=== PATIENT | female | born 1970 | race Caucasian/White ===

== ENCOUNTER 2021-03-19 08:59 | Inpatient (IN) | payer MEDICARE ==
[2021-03-19] VITALS (7 sets, daily range): BP systolic 108–119; BP diastolic 69–81
[~2021-03-19] VITALS: Ht 157.5 cm; Wt 77.1 kg
[2021-03-19] MEDS ORDERED: SODIUM CHLORIDE 0.9% 1000ML 1,000 ML IV STA (09:17)
[2021-03-19] MEDS ORDERED: DIATRIZOATE MEGL/DIATRIZOA SOD 30 ML BTL PO ONE (09:51)
[2021-03-19] MEDS: ONDANSETRON HCL INJ 2MG/ML 2ML 2 MG/ML VIAL IV PRN ×2 (09:51→20:21)
[2021-03-19] MEDS ORDERED: IOPAMIDOL 370 MG/ML 200 ML INFUS..BTL INJ ONE (09:51)
[2021-03-19] MEDS ORDERED: SODIUM CHLORIDE 0.9% 50ML 50 ML ONE (09:51)
[2021-03-19 09:59] LABS: BASOPHILS # (AUTO) 0.1 (0.0-0.1); BASOPHILS % 0.7 % (0.0-1.0); EOSINOPHILS # (AUTO) 0.3 (0.0-0.4); HEMATOCRIT 39.7 % (34.2-44.1); HEMOGLOBIN 13.4 g/dL (12.0-16.0); LYMPHOCYTES # (AUTO) 2.3 (1.0-3.2); LYMPHOCYTES % 22.4 % (18.0-39.1); MEAN CORPUSCULAR HEMOGLOBIN 30.9 pg (28-32); MEAN CORPUSCULAR HGB CONC 33.8 g/dL (31-35); MEAN CORPUSCULAR VOLUME 91.7 fL (81-99); MONOCYTES # (AUTO) 0.4 (0.2-0.8); MONOCYTES % 4.2 % (4.4-11.3); NEUTROPHILS # (AUTO) 7.1 (2.1-6.9); PLATELET COUNT 508 x10e3/uL (140-360); RED BLOOD COUNT 4.33 x10e6/uL (3.6-5.1); RED CELL DISTRIBUTION WIDTH 11.9 % (11.7-14.4)
[2021-03-19 10:12] LABS: BACTERIA,URINE FEW /HPF; CLARITY,URINE CLEAR (CLEAR); COLOR,URINE YELLOW (YELLOW); EPITHELIAL CELLS,URINE FEW /LPF; KETONES,URINE NEGATIVE (NEGATIVE); LEUKOCYTE ESTERASE ,URINE NEGATIVE (NEGATIVE); NITRITE,URINE NEGATIVE (NEGATIVE); PROTEIN,URINE DIPSTICK NEGATIVE (NEGATIVE); RBC,URINE 0-5 /HPF (0-5); URINE UROBILINOGEN 0.2 mg/dL (0.2 - 1)
[2021-03-19 10:29] LABS: ALBUMIN 3.6 g/dL (3.5-5.0); ALBUMIN/GLOBULIN RATIO 0.9 (0.8-2.0); ANION GAP 17.8 mmol/L (8-16); CALCIUM 9.2 mg/dL (8.4-10.2); CREATININE, SERUM 1.36 mg/dL (0.57-1.11); POTASSIUM 4.8 mmol/L (3.5-5.1)
[2021-03-19] MEDS ORDERED: INSULIN REGULAR, HUMAN 100 UNIT/1 ML 3ML VIAL IV ONE (10:45)
[2021-03-19] MEDS ORDERED: LACTATED RINGER'S 1,000 ML INJ ONE (10:45)
[2021-03-19] MEDS ORDERED: SODIUM CHLORIDE 0.9% 1000ML 1,000 ML ONE (10:52)
[2021-03-19] MEDS ORDERED: SODIUM CHLORIDE 0.9% 1000ML 1,000 ML IV ONE (11:00)
[2021-03-19] MEDS ORDERED: ONDANSETRON HCL INJ 2MG/ML 2ML 2 MG/ML VIAL IV PRN (11:30)
[2021-03-19] MEDS ORDERED: MORPHINE SULFATE INJ 2 MG/ML SYR IV PRN (11:30)
[2021-03-19] MEDS: SODIUM CHLORIDE 0.9% 1000ML 1,000 ML IV SCH ×3 (11:48→20:02)
[2021-03-19] MEDS ORDERED: DEXTROSE 50% SYRINGE 50 ML IV PRN (12:45)
[2021-03-19] MEDS: INSULIN REGULAR, HUMAN 100 UNIT/1 ML 3ML VIAL SQ SCH ×2 (18:19→21:48)
[2021-03-19 18:26] LABS: CHOL/HDL RATIO 8.9 (3.0-3.6); CHOLESTEROL 286 MD/DL (0-199); HDL CHOLESTEROL 32 MG/DL (40-60); TRIGLYCERIDES 727 MG/DL (0-149)
[2021-03-19 18:49] LABS: FREE THYROXINE INDEX 2.2983 (1.4-3.8); THYROID STIMULATING HORMONE 1.409 uIU/mL (0.350-4.940)
[2021-03-19] MEDS: MORPHINE SULFATE INJ 4 MG/ML INJ 1ML IV PRN (20:22)
[2021-03-20] VITALS (9 sets, daily range): BP systolic 94–118; BP diastolic 64–74
[2021-03-20] MEDS: SODIUM CHLORIDE 0.9% 1000ML 1,000 ML IV SCH ×7 (00:34→22:33)
[2021-03-20] MEDS: ONDANSETRON HCL INJ 2MG/ML 2ML 2 MG/ML VIAL IV PRN ×2 (00:50→20:30)
[2021-03-20] MEDS: MORPHINE SULFATE INJ 4 MG/ML INJ 1ML IV PRN ×5 (00:51→20:30)
[2021-03-20] MEDS ORDERED: FENOFIBRATE 145 MG TAB PO STA (01:17)
[2021-03-20 05:01] LABS: BASOPHILS # (AUTO) 0.1 (0.0-0.1); BASOPHILS % 0.6 % (0.0-1.0); EOSINOPHILS # (AUTO) 0.2 (0.0-0.4); EOSINOPHILS % 2.3 % (0.0-6.0); HEMATOCRIT 31.1 % (34.2-44.1); HEMOGLOBIN 10.2 g/dL (12.0-16.0); LYMPHOCYTES # (AUTO) 2.3 (1.0-3.2); LYMPHOCYTES % 28.9 % (18.0-39.1); MEAN CORPUSCULAR HEMOGLOBIN 30.5 pg (28-32); MEAN CORPUSCULAR HGB CONC 32.8 g/dL (31-35); MEAN CORPUSCULAR VOLUME 93.1 fL (81-99); MONOCYTES # (AUTO) 0.4 (0.2-0.8); MONOCYTES % 4.4 % (4.4-11.3); NEUTROPHILS % 63.2 % (38.7-80.0); PLATELET COUNT 382 x10e3/uL (140-360); RED BLOOD COUNT 3.34 x10e6/uL (3.6-5.1)
[2021-03-20] MEDS: METOCLOPRAMIDE HCL 10 MG/2ML VIAL IV SCH ×3 (05:12→18:19)
[2021-03-20 05:36] LABS: ALANINE AMINOTRANSFERASE 13 IU/L (0-55); ALBUMIN 2.8 g/dL (3.5-5.0); ALKALINE PHOSPHATASE 131 IU/L (40-150); ANION GAP 9.9 mmol/L (8-16); BLOOD UREA NITROGEN 21 mg/dL (7-26); BUN/CREATININE RATIO 32 (6-25); CALCIUM 7.9 mg/dL (8.4-10.2); CARBON DIOXIDE 22 mmol/L (22-29); CHLORIDE 108 mmol/L (98-107); CREATININE, SERUM 0.65 mg/dL (0.57-1.11); EST GLOMERULAR FILTRATION RATE > 60 ML/MIN (60-); GLUCOSE 161 mg/dL (74-118); LIPASE 192 U/L (8-78); MAGNESIUM 1.9 MG/DL (1.3-2.1); POTASSIUM 3.9 mmol/L (3.5-5.1); SODIUM 136 mmol/L (136-145)
[2021-03-20] MEDS: FENOFIBRATE 145 MG TAB PO SCH (08:54)
[2021-03-20] MEDS: INSULIN REGULAR, HUMAN 100 UNIT/1 ML 3ML VIAL SQ SCH ×2 (09:00→12:30)
[2021-03-20] MEDS: INSULIN LISPRO 100 UNIT/1 ML 3ML VIAL SQ SCH ×2 (16:32→21:30)
[2021-03-20] MEDS ORDERED: INSULIN GLARGINE 100 UNITS/ML VIAL SQ SCH (21:00)
[2021-03-21] VITALS (8 sets, daily range): BP systolic 98–137; BP diastolic 69–97
[2021-03-21] MEDS: SODIUM CHLORIDE 0.9% 1000ML 1,000 ML IV SCH ×4 (00:30→18:23)
[2021-03-21] MEDS: METOCLOPRAMIDE HCL 10 MG/2ML VIAL IV SCH ×4 (00:44→17:16)
[2021-03-21] MEDS: MORPHINE SULFATE INJ 4 MG/ML INJ 1ML IV PRN ×3 (01:30→18:18)
[2021-03-21 05:29] LABS: BASOPHILS # (AUTO) 0.1 (0.0-0.1); BASOPHILS % 0.7 % (0.0-1.0); EOSINOPHILS # (AUTO) 0.2 (0.0-0.4); EOSINOPHILS % 2.6 % (0.0-6.0); HEMATOCRIT 33.9 % (34.2-44.1); HEMOGLOBIN 11.1 g/dL (12.0-16.0); LYMPHOCYTES # (AUTO) 2.1 (1.0-3.2); LYMPHOCYTES % 25.6 % (18.0-39.1); MEAN CORPUSCULAR HEMOGLOBIN 30.9 pg (28-32); MEAN CORPUSCULAR HGB CONC 32.7 g/dL (31-35); MEAN CORPUSCULAR VOLUME 94.4 fL (81-99); MONOCYTES # (AUTO) 0.3 (0.2-0.8); MONOCYTES % 4.2 % (4.4-11.3); NEUTROPHILS # (AUTO) 5.3 (2.1-6.9); NEUTROPHILS % 66.3 % (38.7-80.0); PLATELET COUNT 415 x10e3/uL (140-360); RED BLOOD COUNT 3.59 x10e6/uL (3.6-5.1)
[2021-03-21 05:59] LABS: ALANINE AMINOTRANSFERASE 34 IU/L (0-55); ALBUMIN/GLOBULIN RATIO 0.9 (0.8-2.0); ALKALINE PHOSPHATASE 180 IU/L (40-150); ANION GAP 8.7 mmol/L (8-16); BLOOD UREA NITROGEN 9 mg/dL (7-26); BUN/CREATININE RATIO 13 (6-25); CALCIUM 8.2 mg/dL (8.4-10.2); CARBON DIOXIDE 24 mmol/L (22-29); CHLORIDE 107 mmol/L (98-107); CREATININE, SERUM 0.72 mg/dL (0.57-1.11); EST GLOMERULAR FILTRATION RATE > 60 ML/MIN (60-); GLUCOSE 197 mg/dL (74-118); LIPASE 71 U/L (8-78); POTASSIUM 3.7 mmol/L (3.5-5.1); SODIUM 136 mmol/L (136-145)
[2021-03-21 06:20] LABS: FERRITIN 137.04 ng/mL (4.63-204.00)
[2021-03-21] MEDS: INSULIN LISPRO 100 UNIT/1 ML 3ML VIAL SQ SCH ×4 (07:30→21:15)
[2021-03-21] MEDS: FENOFIBRATE 145 MG TAB PO SCH (08:07)
[2021-03-21] MEDS ORDERED: SODIUM CHLORIDE 0.9% 1000ML 1,000 ML IV SCH (13:00)
[2021-03-21] MEDS: ACETAMINOPHEN 325 MG TAB PO PRN (19:33)
[2021-03-21] MEDS: INSULIN GLARGINE 100 UNITS/ML VIAL SQ SCH (21:15)
[2021-03-22] VITALS (8 sets, daily range): BP systolic 118–146; BP diastolic 75–96
[2021-03-22] MEDS: METOCLOPRAMIDE HCL 10 MG/2ML VIAL IV SCH ×5 (00:41→23:11)
[2021-03-22] MEDS: SODIUM CHLORIDE 0.9% 1000ML 1,000 ML IV SCH ×6 (02:45→22:34)
[2021-03-22] MEDS: MORPHINE SULFATE INJ 4 MG/ML INJ 1ML IV PRN ×5 (04:46→23:11)
[2021-03-22 06:35] LABS: MAGNESIUM 1.8 MG/DL (1.3-2.1)
[2021-03-22] MEDS: ACETAMINOPHEN 325 MG TAB PO PRN ×2 (07:29→20:50)
[2021-03-22] MEDS: INSULIN LISPRO 100 UNIT/1 ML 3ML VIAL SQ SCH ×4 (07:30→21:00)
[2021-03-22] MEDS: FENOFIBRATE 145 MG TAB PO SCH (08:47)
[2021-03-22] MEDS: LORAZEPAM 1 MG TAB PO PRN ×2 (15:04→21:57)
[2021-03-22] MEDS: INSULIN GLARGINE 100 UNITS/ML VIAL SQ SCH (21:00)
[2021-03-23] VITALS: BP_SYST 140; BP_SYST 146; BP_DIAS 83; BP_DIAS 90
[2021-03-23 04:00] VITALS: BP 126/88
[2021-03-23] MEDS: METOCLOPRAMIDE HCL 10 MG/2ML VIAL IV SCH (06:26)
[2021-03-23] MEDS: MORPHINE SULFATE INJ 4 MG/ML INJ 1ML IV PRN (06:40)
[2021-03-23] MEDS: ACETAMINOPHEN 325 MG TAB PO PRN (06:40)
[2021-03-23] MEDS: INSULIN LISPRO 100 UNIT/1 ML 3ML VIAL SQ SCH (07:30)
[2021-03-23] MEDS: FENOFIBRATE 145 MG TAB PO SCH (07:59)
[2021-03-23] MEDS ORDERED: PANTOPRAZOLE SO40 MG PO (08:09)
[2021-03-23 08:14] VITALS: BP 126/88
== END 2021-03-23 09:30 | disposition home or self-care (01) | DRG 439 ==
LOC: ER 09:24 → ERHOLD 11:33 → MED/SURG 12:58
PROVIDERS: ADMIT Family Medicine; ATTEND Family Medicine
DX: K85.90 Acute pancreatitis without necrosis or infection, unspecified (principal); E87.1 Hypo-osmolality and hyponatremia; E11.649 Type 2 diabetes mellitus with hypoglycemia without coma; E11.40 Type 2 diabetes mellitus with diabetic neuropathy, unspecified; F31.9 Bipolar disorder, unspecified; Z87.891 Personal history of nicotine dependence; Z20.822 Contact with and (suspected) exposure to COVID-19; I10 Essential (primary) hypertension; E78.5 Hyperlipidemia, unspecified; D64.9 Anemia, unspecified; J44.9 Chronic obstructive pulmonary disease, unspecified; M19.90 Unspecified osteoarthritis, unspecified site; M79.7 Fibromyalgia; E86.1 Hypovolemia
CPT/HCPCS: 36415; 74177; 80053; 80061; 81001; 82150; 82607; 82728; 82746; 82948; 83036; 83540; 83690; 83735; 84436; 84443; 84466; 84478; 84479; 85025; 85045; 93005; 93971; 96372; 99284; J1815; J1817; J2270; J2405; J2765; J7030; Q9967; U0002

== ENCOUNTER 2021-07-19 17:14 | Inpatient (IN) | payer MEDICARE, OTHER ==
[~2021-07-19] VITALS: Ht 157.5 cm; Wt 78.0 kg
[~2021-07-19 17:14] MED LIST: PANTOPRAZOLE SO40 MG PO
[2021-07-19 18:00] LABS: BASOPHILS % 0.5 % (0.0-1.0); EOSINOPHILS # (AUTO) 0.1 (0.0-0.4); EOSINOPHILS % 1.7 % (0.0-6.0); HEMATOCRIT 37.7 % (34.2-44.1); HEMOGLOBIN 12.1 g/dL (12.0-16.0); LYMPHOCYTES # (AUTO) 0.5 (1.0-3.2); LYMPHOCYTES % 7.8 % (18.0-39.1); MEAN CORPUSCULAR HEMOGLOBIN 31.1 pg (28-32); MEAN CORPUSCULAR HGB CONC 32.1 g/dL (31-35); MEAN CORPUSCULAR VOLUME 96.9 fL (81-99); MONOCYTES # (AUTO) 0.1 (0.2-0.8); MONOCYTES % 1.4 % (4.4-11.3); NEUTROPHILS # (AUTO) 5.1 (2.1-6.9); NEUTROPHILS % 88.1 % (38.7-80.0); PLATELET COUNT 343 x10e3/uL (140-360); RED BLOOD COUNT 3.89 x10e6/uL (3.6-5.1); RED CELL DISTRIBUTION WIDTH 13.4 % (11.7-14.4)
[2021-07-19] MEDS ORDERED: PIPERACILLIN/TAZOBACTAM 3.375 GM in SODIUM CHLORIDE 0.9% 50ML 50 ML IV ONE (18:15)
[2021-07-19] MEDS ORDERED: SODIUM CHLORIDE 0.9% 1000ML 1,000 ML IV SCH (18:15)
[2021-07-19 18:33] LABS: ALBUMIN 3.1 g/dL (3.5-5.0); ALBUMIN/GLOBULIN RATIO 0.8 (0.8-2.0); ANION GAP 14.8 mmol/L (8-16); CALCIUM 9.3 mg/dL (8.4-10.2); CREATININE, SERUM 1.03 mg/dL (0.57-1.11); POTASSIUM 3.8 mmol/L (3.5-5.1)
[2021-07-19] MEDS ORDERED: KETOROLAC TROMETHAMINE 30 MG/ML VIAL IV STA (18:37)
[2021-07-19] MEDS ORDERED: ONDANSETRON HCL INJ 2MG/ML 2ML 2 MG/ML VIAL IV STA (18:37)
[2021-07-19 18:45] LABS: AMYLASE 41 U/L (25-125); LIPASE 53 U/L (8-78)
[2021-07-19 18:54] LABS: AMPHETAMINES SCREEN,URINE NEGATIVE (NEGATIVE); PHENCYCLIDINE SCREEN,URINE NEGATIVE (NEGATIVE)
[2021-07-19 18:55] LABS: BENZODIAZEPINES SCREEN,URINE NEGATIVE (NEGATIVE)
[2021-07-19 18:56] LABS: CLARITY,URINE CLEAR (CLEAR); COLOR,URINE YELLOW (YELLOW); KETONES,URINE NEGATIVE (NEGATIVE); LEUKOCYTE ESTERASE ,URINE NEGATIVE (NEGATIVE); NITRITE,URINE NEGATIVE (NEGATIVE); PROTEIN,URINE DIPSTICK NEGATIVE (NEGATIVE); URINE UROBILINOGEN 0.2 mg/dL (0.2 - 1)
[2021-07-19] MEDS ORDERED: SODIUM CHLORIDE 0.9% 1000ML 1,000 ML IV ONE ×3 (19:00→21:15)
[2021-07-19 19:04] LABS: WBC,URINE (MAN) 21-50 /HPF (0-5)
[2021-07-19 19:05] LABS: BACTERIA,URINE FEW /HPF; EPITHELIAL CELLS,URINE FEW /LPF
[2021-07-19 19:10] LABS: SALICYLATE < 5.0 mg/dL (0-30)
[2021-07-19 19:25] LABS: BAND NEUTROPHILS % (MANUAL) 10 %; EOSINOPHILS % (MANUAL) 3 % (0-7); LYMPHOCYTES % (MANUAL) 13 % (19-48); MYELOCYTES % (MANUAL) 1 % (0-0); NEUTROPHILS % (MANUAL) 73 % (40-74)
[2021-07-19 19:26] LABS: PLATELET ESTIMATE ADEQUATE; PLATELET MORPHOLOGY COMMENT NORMAL; RBC MORPHOLOGY COMMENT NORMAL
[2021-07-19] MEDS ORDERED: DEXTROSE 50% SYRINGE 50 ML IV PRN (21:30)
[2021-07-19] MEDS ORDERED: Morphine 2mg Syringe 2 MG/ML SYR ONE (23:25)
[2021-07-19] MEDS ORDERED: ONDANSETRON HCL INJ 2MG/ML 2ML 2 MG/ML VIAL ONE (23:25)
[2021-07-19] MEDS: PIPERACILLIN/TAZOBACTAM 3.375 GM in SODIUM CHLORIDE 0.9% 50ML 50 ML IV SCH (23:35)
[2021-07-19] MEDS: SODIUM CHLORIDE 0.9% 1000ML 1,000 ML IV SCH (23:36)
[2021-07-20] VITALS (7 sets, daily range): BP systolic 90–104; BP diastolic 60–73
[2021-07-20] MEDS ORDERED: Morphine 2mg Syringe 2 MG/ML SYR IV STA
[2021-07-20] MEDS ORDERED: BUPIVACAINE HCL 0.5% INJ 30 ML VIAL INJ ONE (00:13)
[2021-07-20] MEDS ORDERED: Morphine 4mg Syringe 4 MG/ML INJ IV PRN (03:00)
[2021-07-20] MEDS: ONDANSETRON HCL INJ 2MG/ML 2ML 2 MG/ML VIAL IV PRN ×2 (03:53→18:06)
[2021-07-20] MEDS ORDERED: LAMICTAL5 MG PO (04:55)
[2021-07-20] MEDS ORDERED: CYMBALTA30 MG (05:02)
[2021-07-20] MEDS ORDERED: ATORVASTATIN CA10 MG PO (05:02)
[2021-07-20] MEDS ORDERED: LISINOPRIL10 MG PO (05:02)
[2021-07-20] MEDS ORDERED: DIPHENHYDRAMINE25 M1 PO (05:02)
[2021-07-20] MEDS ORDERED: BUSPIRONE HCL15 MG PO (05:02)
[2021-07-20] MEDS: SODIUM CHLORIDE 0.9% 1000ML 1,000 ML IV SCH ×2 (05:46→20:01)
[2021-07-20] MEDS: KETOROLAC TROMETHAMINE 30 MG/ML VIAL IV PRN ×3 (05:47→18:06)
[2021-07-20] MEDS: PIPERACILLIN/TAZOBACTAM 3.375 GM in SODIUM CHLORIDE 0.9% 50ML 50 ML IV SCH ×4 (05:47→23:37)
[2021-07-20 06:37] LABS: BASOPHILS # (AUTO) 0.1 (0.0-0.1); BASOPHILS % 0.8 % (0.0-1.0); EOSINOPHILS % 0.1 % (0.0-6.0); HEMATOCRIT 33.1 % (34.2-44.1); HEMOGLOBIN 10.8 g/dL (12.0-16.0); LYMPHOCYTES # (AUTO) 0.4 (1.0-3.2); LYMPHOCYTES % 3.4 % (18.0-39.1); MEAN CORPUSCULAR HGB CONC 32.6 g/dL (31-35); MEAN CORPUSCULAR VOLUME 95.1 fL (81-99); MONOCYTES # (AUTO) 0.3 (0.2-0.8); MONOCYTES % 3.3 % (4.4-11.3); NEUTROPHILS # (AUTO) 9.5 (2.1-6.9); NEUTROPHILS % 91.2 % (38.7-80.0); PLATELET COUNT 339 x10e3/uL (140-360); RED BLOOD COUNT 3.48 x10e6/uL (3.6-5.1); RED CELL DISTRIBUTION WIDTH 13.4 % (11.7-14.4)
[2021-07-20 07:14] LABS: ALBUMIN 2.5 g/dL (3.5-5.0); ALBUMIN/GLOBULIN RATIO 0.8 (0.8-2.0); ANION GAP 15.6 mmol/L (8-16); CALCIUM 8.1 mg/dL (8.4-10.2); CREATININE, SERUM 1.08 mg/dL (0.57-1.11); POTASSIUM 4.6 mmol/L (3.5-5.1)
[2021-07-20] MEDS ORDERED: Morphine 2mg Syringe 2 MG/ML SYR IV PRN (07:30)
[2021-07-20] MEDS ORDERED: HYDRALAZINE HCL 20 MG/ML VIAL IV PRN (07:30)
[2021-07-20] MEDS ORDERED: SODIUM CHLORIDE 0.9% 50ML 50 ML ONE (07:53)
[2021-07-20] MEDS ORDERED: IOPAMIDOL 370 MG/ML 200 ML INFUS..BTL INJ ONE (07:53)
[2021-07-20] MEDS: PANTOPRAZOLE SOD 40 MG TABEC PO SCH ×2 (08:30→16:45)
[2021-07-20] MEDS: LAMOTRIGINE 100 MG TAB PO SCH ×2 (08:30→16:45)
[2021-07-20] MEDS: DULOXETINE HCL 30 MG DELAYED RELEASE PO SCH ×2 (08:30→16:45)
[2021-07-20] MEDS: INSULIN REGULAR, HUMAN 100 UNIT/1 ML SQ SCH ×4 (08:30→21:18)
[2021-07-20] MEDS: BUSPIRONE HCL 5 MG TAB PO SCH ×3 (08:30→20:22)
[2021-07-20 11:49] LABS: BAND NEUTROPHILS % (MANUAL) 16 %; LYMPHOCYTES % (MANUAL) 6 % (19-48); MONOCYTES % (MANUAL) 4 % (3.4-9.0); MYELOCYTES % (MANUAL) 2 % (0-0); NEUTROPHILS % (MANUAL) 69 % (40-74); PLATELET ESTIMATE ADEQUATE; PLATELET MORPHOLOGY COMMENT NORMAL; RBC MORPHOLOGY COMMENT NORMAL
[2021-07-20] MEDS ORDERED: NEOSTIGMINE 1 MG/ML 10ML VIAL ONE (12:47)
[2021-07-20] MEDS ORDERED: ATROPINE SULFATE 1 MG/ML VIAL ONE (12:47)
[2021-07-20] MEDS ORDERED: POVIDONE IODINE 0.05% 0.05 % ML PO ONE (12:47)
[2021-07-20] MEDS ORDERED: ONDANSETRON HCL INJ 2MG/ML 2ML 2 MG/ML VIAL ONE (12:47)
[2021-07-20] MEDS ORDERED: LIDOCAINE HCL 2% LOCAL INJ 5 ML SDV VIAL INJ ONE (12:47)
[2021-07-20] MEDS ORDERED: SEVOFLURANE INHAL SOLN 250 ML PEN BTL ONE (12:47)
[2021-07-20] MEDS ORDERED: ROCURONIUM BROMIDE 10 MG/ML 5ML VIAL IV ONE (12:47)
[2021-07-20] MEDS ORDERED: DEXAMETHASONE SOD PHOS INJ 4 MG/ML SDV ONE (12:47)
[2021-07-20] MEDS ORDERED: KETOROLAC TROMETHAMINE 30 MG/ML VIAL ONE (12:47)
[2021-07-20] MEDS ORDERED: SUCCINYLCHOLINE CHLORIDE 20 MG/ML 10ML VIAL ONE (12:47)
[2021-07-20] MEDS ORDERED: PROPOFOL IV EMULSION 10 MG/ML 20 ML VIAL ONE (12:47)
[2021-07-20] MEDS: HYDROMORPHONE 1MG/1ML INJ IV PRN ×3 (14:15→22:45)
[2021-07-20] MEDS ORDERED: FENTANYL CITRATE/PF 100MCG/2 ML INJ ONE (16:10)
[2021-07-20] MEDS ORDERED: MIDAZOLAM HCL 2 MG/2 ML VIAL ONE (16:10)
[2021-07-20] MEDS: TEMAZEPAM 7.5 MG CAP PO PRN (20:22)
[2021-07-20] MEDS: ATORVASTATIN 10 MG TAB PO SCH (20:22)
[2021-07-21] VITALS (8 sets, daily range): BP systolic 101–126; BP diastolic 75–82
[2021-07-21] MEDS: KETOROLAC TROMETHAMINE 30 MG/ML VIAL IV PRN ×3 (00:40→20:29)
[2021-07-21] MEDS: HYDROMORPHONE 1MG/1ML INJ IV PRN ×2 (05:11→17:14)
[2021-07-21] MEDS: PIPERACILLIN/TAZOBACTAM 3.375 GM in SODIUM CHLORIDE 0.9% 50ML 50 ML IV SCH ×3 (06:02→16:15)
[2021-07-21 06:11] LABS: BASOPHILS % 0.3 % (0.0-1.0); EOSINOPHILS # (AUTO) 0.2 (0.0-0.4); EOSINOPHILS % 1.3 % (0.0-6.0); HEMATOCRIT 33.3 % (34.2-44.1); HEMOGLOBIN 10.6 g/dL (12.0-16.0); LYMPHOCYTES # (AUTO) 0.6 (1.0-3.2); LYMPHOCYTES % 4.8 % (18.0-39.1); MEAN CORPUSCULAR HEMOGLOBIN 31.1 pg (28-32); MEAN CORPUSCULAR HGB CONC 31.8 g/dL (31-35); MEAN CORPUSCULAR VOLUME 97.7 fL (81-99); MONOCYTES # (AUTO) 0.4 (0.2-0.8); MONOCYTES % 2.9 % (4.4-11.3); NEUTROPHILS # (AUTO) 11.5 (2.1-6.9); NEUTROPHILS % 89.3 % (38.7-80.0); PLATELET COUNT 395 x10e3/uL (140-360); RED BLOOD COUNT 3.41 x10e6/uL (3.6-5.1); RED CELL DISTRIBUTION WIDTH 13.7 % (11.7-14.4)
[2021-07-21 06:34] LABS: ANION GAP 15.3 mmol/L (8-16); CALCIUM 8.7 mg/dL (8.4-10.2); CREATININE, SERUM 0.96 mg/dL (0.57-1.11); POTASSIUM 3.3 mmol/L (3.5-5.1)
[2021-07-21] MEDS: INSULIN REGULAR, HUMAN 100 UNIT/1 ML SQ SCH ×4 (07:30→20:26)
[2021-07-21] MEDS: PANTOPRAZOLE SOD 40 MG TABEC PO SCH ×2 (08:49→16:14)
[2021-07-21] MEDS: DULOXETINE HCL 30 MG DELAYED RELEASE PO SCH ×2 (08:49→16:14)
[2021-07-21] MEDS: BUSPIRONE HCL 5 MG TAB PO SCH ×3 (08:49→20:30)
[2021-07-21] MEDS: LAMOTRIGINE 100 MG TAB PO SCH ×2 (08:50→16:15)
[2021-07-21] MEDS ORDERED: POTASSIUM CHLORIDE 10MEQ/100ML 100 ML IV ONE ×2 (13:00→16:15)
[2021-07-21] MEDS ORDERED: MIDAZOLAM HCL 2 MG/2 ML VIAL ONE (15:03)
[2021-07-21] MEDS ORDERED: FENTANYL CITRATE/PF 100MCG/2 ML INJ ONE (15:03)
[2021-07-21] MEDS: SODIUM CHLORIDE 0.9% 1000ML 1,000 ML IV SCH (16:07)
[2021-07-21] MEDS: ATORVASTATIN 10 MG TAB PO SCH (20:30)
[2021-07-22] VITALS (9 sets, daily range): BP systolic 94–134; BP diastolic 73–87
[2021-07-22] MEDS: PIPERACILLIN/TAZOBACTAM 3.375 GM in SODIUM CHLORIDE 0.9% 50ML 50 ML IV SCH ×3 (00:20→12:00)
[2021-07-22] MEDS: HYDROMORPHONE 1MG/1ML INJ IV PRN ×2 (00:22→08:20)
[2021-07-22] MEDS: PANTOPRAZOLE SOD 40 MG TABEC PO SCH ×2 (05:22→08:21)
[2021-07-22] MEDS: KETOROLAC TROMETHAMINE 30 MG/ML VIAL IV PRN (05:23)
[2021-07-22 05:45] LABS: BASOPHILS # (AUTO) 0.1 (0.0-0.1); BASOPHILS % 0.5 % (0.0-1.0); EOSINOPHILS # (AUTO) 0.4 (0.0-0.4); EOSINOPHILS % 2.9 % (0.0-6.0); HEMATOCRIT 30.4 % (34.2-44.1); HEMOGLOBIN 9.7 g/dL (12.0-16.0); LYMPHOCYTES # (AUTO) 0.6 (1.0-3.2); LYMPHOCYTES % 4.1 % (18.0-39.1); MEAN CORPUSCULAR HEMOGLOBIN 30.9 pg (28-32); MEAN CORPUSCULAR HGB CONC 31.9 g/dL (31-35); MEAN CORPUSCULAR VOLUME 96.8 fL (81-99); MONOCYTES # (AUTO) 0.5 (0.2-0.8); MONOCYTES % 3.6 % (4.4-11.3); NEUTROPHILS # (AUTO) 11.7 (2.1-6.9); PLATELET COUNT 368 x10e3/uL (140-360); RED BLOOD COUNT 3.14 x10e6/uL (3.6-5.1); RED CELL DISTRIBUTION WIDTH 13.9 % (11.7-14.4)
[2021-07-22 06:20] LABS: ANION GAP 15.4 mmol/L (8-16); CALCIUM 8.6 mg/dL (8.4-10.2); CREATININE, SERUM 0.77 mg/dL (0.57-1.11); POTASSIUM 3.4 mmol/L (3.5-5.1)
[2021-07-22] MEDS: BUSPIRONE HCL 5 MG TAB PO SCH ×3 (08:21→16:52)
[2021-07-22] MEDS: DULOXETINE HCL 30 MG DELAYED RELEASE PO SCH ×2 (08:21→16:52)
[2021-07-22] MEDS: LAMOTRIGINE 100 MG TAB PO SCH ×2 (08:21→16:52)
[2021-07-22] MEDS: INSULIN REGULAR, HUMAN 100 UNIT/1 ML SQ SCH ×4 (08:32→21:24)
[2021-07-22] MEDS: POTASSIUM CHLORIDE 20MEQ/100ML 100 ML IV ONE ×2 (10:01→11:57)
[2021-07-22] MEDS: SODIUM CHLORIDE 0.9% 1000ML 1,000 ML IV SCH (12:04)
[2021-07-22] MEDS ORDERED: POTASSIUM CHLORIDE 20 MEQ TAB CR PO ONE (12:30)
[2021-07-22] MEDS: CEFUROXIME AXETIL 250 MG TAB PO SCH (16:53)
[2021-07-22] MEDS: ATORVASTATIN 10 MG TAB PO SCH (21:24)
[2021-07-22] MEDS: HYDROCODONE/APAP 5MG-325MG TAB PO PRN (21:55)
[2021-07-23] VITALS (8 sets, daily range): BP systolic 127–145; BP diastolic 75–93
[2021-07-23] MEDS: HYDROCODONE/APAP 5MG-325MG TAB PO PRN ×5 (04:05→21:25)
[2021-07-23 04:59] LABS: BASOPHILS # (AUTO) 0.1 (0.0-0.1); BASOPHILS % 0.5 % (0.0-1.0); EOSINOPHILS # (AUTO) 0.5 (0.0-0.4); EOSINOPHILS % 3.4 % (0.0-6.0); HEMATOCRIT 29.7 % (34.2-44.1); HEMOGLOBIN 9.7 g/dL (12.0-16.0); LYMPHOCYTES # (AUTO) 0.9 (1.0-3.2); LYMPHOCYTES % 6.3 % (18.0-39.1); MEAN CORPUSCULAR HEMOGLOBIN 30.4 pg (28-32); MEAN CORPUSCULAR HGB CONC 32.7 g/dL (31-35); MEAN CORPUSCULAR VOLUME 93.1 fL (81-99); MONOCYTES # (AUTO) 0.7 (0.2-0.8); MONOCYTES % 4.4 % (4.4-11.3); NEUTROPHILS # (AUTO) 12.1 (2.1-6.9); NEUTROPHILS % 82.3 % (38.7-80.0); PLATELET COUNT 347 x10e3/uL (140-360); RED BLOOD COUNT 3.19 x10e6/uL (3.6-5.1); RED CELL DISTRIBUTION WIDTH 13.8 % (11.7-14.4)
[2021-07-23 05:26] LABS: ALBUMIN 2.2 g/dL (3.5-5.0); ALBUMIN/GLOBULIN RATIO 0.5 (0.8-2.0); ANION GAP 12.3 mmol/L (8-16); CALCIUM 8.9 mg/dL (8.4-10.2); CREATININE, SERUM 0.71 mg/dL (0.57-1.11); POTASSIUM 3.3 mmol/L (3.5-5.1)
[2021-07-23] MEDS: PANTOPRAZOLE SOD 40 MG TABEC PO SCH ×2 (05:32→16:30)
[2021-07-23] MEDS: INSULIN REGULAR, HUMAN 100 UNIT/1 ML SQ SCH ×4 (08:00→21:00)
[2021-07-23] MEDS: SODIUM CHLORIDE 0.9% 1000ML 1,000 ML IV SCH (08:04)
[2021-07-23] MEDS: DULOXETINE HCL 30 MG DELAYED RELEASE PO SCH ×2 (08:09→16:30)
[2021-07-23] MEDS: LAMOTRIGINE 100 MG TAB PO SCH ×2 (08:09→16:32)
[2021-07-23] MEDS: BUSPIRONE HCL 5 MG TAB PO SCH ×3 (08:10→21:00)
[2021-07-23] MEDS: CEFUROXIME AXETIL 250 MG TAB PO SCH ×2 (08:10→16:30)
[2021-07-23] MEDS ORDERED: DIATRIZOATE MEGL/DIATRIZOA SOD 30 ML BTL PO ONE (12:15)
[2021-07-23] MEDS: ATORVASTATIN 10 MG TAB PO SCH (21:00)
[2021-07-24] VITALS (8 sets, daily range): BP systolic 121–136; BP diastolic 78–91
[2021-07-24] MEDS: HYDROCODONE/APAP 5MG-325MG TAB PO PRN ×6 (01:30→22:35)
[2021-07-24] MEDS: SODIUM CHLORIDE 0.9% 1000ML 1,000 ML IV SCH (04:04)
[2021-07-24] MEDS: BUSPIRONE HCL 5 MG TAB PO SCH ×3 (08:06→20:25)
[2021-07-24] MEDS: INSULIN REGULAR, HUMAN 100 UNIT/1 ML SQ SCH ×4 (08:06→21:00)
[2021-07-24] MEDS: PANTOPRAZOLE SOD 40 MG TABEC PO SCH ×2 (08:06→16:37)
[2021-07-24] MEDS: LAMOTRIGINE 100 MG TAB PO SCH ×2 (08:07→16:38)
[2021-07-24] MEDS: DULOXETINE HCL 30 MG DELAYED RELEASE PO SCH ×2 (08:07→16:38)
[2021-07-24] MEDS: CEFUROXIME AXETIL 250 MG TAB PO SCH (08:07)
[2021-07-24 10:12] LABS: BASOPHILS # (AUTO) 0.1 (0.0-0.1); BASOPHILS % 0.4 % (0.0-1.0); EOSINOPHILS # (AUTO) 0.4 (0.0-0.4); EOSINOPHILS % 2.4 % (0.0-6.0); HEMOGLOBIN 9.8 g/dL (12.0-16.0); LYMPHOCYTES # (AUTO) 1.2 (1.0-3.2); LYMPHOCYTES % 7.8 % (18.0-39.1); MEAN CORPUSCULAR HEMOGLOBIN 30.5 pg (28-32); MEAN CORPUSCULAR HGB CONC 32.7 g/dL (31-35); MEAN CORPUSCULAR VOLUME 93.5 fL (81-99); MONOCYTES # (AUTO) 0.7 (0.2-0.8); MONOCYTES % 4.3 % (4.4-11.3); NEUTROPHILS # (AUTO) 11.9 (2.1-6.9); NEUTROPHILS % 74.9 % (38.7-80.0); PLATELET COUNT 345 x10e3/uL (140-360); RED BLOOD COUNT 3.21 x10e6/uL (3.6-5.1); RED CELL DISTRIBUTION WIDTH 14.3 % (11.7-14.4)
[2021-07-24 10:20] LABS: ALBUMIN 2.1 g/dL (3.5-5.0); ALBUMIN/GLOBULIN RATIO 0.5 (0.8-2.0); ANION GAP 14.2 mmol/L (8-16); CALCIUM 9.1 mg/dL (8.4-10.2); CREATININE, SERUM 0.8 mg/dL (0.57-1.11); POTASSIUM 3.2 mmol/L (3.5-5.1)
[2021-07-24] MEDS ORDERED: ZOFRAN4 MG PO (10:47)
[2021-07-24] MEDS ORDERED: BISACODYL5 MG PO (10:47)
[2021-07-24] MEDS ORDERED: HYDROCODON-ACE1 EA11 PO (10:47)
[2021-07-24] MEDS ORDERED: BISACODYL 5 MG TAB EC PO ONE (11:00)
[2021-07-24] MEDS ORDERED: POTASSIUM CHLORIDE 20 MEQ TAB CR PO ONE (12:00)
[2021-07-24 12:45] LABS: BAND NEUTROPHILS % (MANUAL) 1 %; EOSINOPHILS % (MANUAL) 3 % (0-7); LYMPHOCYTES % (MANUAL) 7 % (19-48); MONOCYTES % (MANUAL) 5 % (3.4-9.0); MYELOCYTES % (MANUAL) 2 % (0-0); NEUTROPHILS % (MANUAL) 82 % (40-74); PLATELET ESTIMATE ADEQUATE
[2021-07-24 12:46] LABS: PLATELET MORPHOLOGY COMMENT NORMAL; RBC MORPHOLOGY COMMENT NORMAL
[2021-07-24] MEDS ORDERED: Vancomycin IV 1.25 GM in SODIUM CHLORIDE 0.9% 250ML 250 ML IV ONE (14:00)
[2021-07-24] MEDS ORDERED: SODIUM CHLORIDE 0.9% 250ML 250 ML ONE (16:33)
[2021-07-24] MEDS: MEROPENEM 500 MG in SODIUM CHLORIDE 0.9% 50ML 50 ML IV SCH ×2 (16:37→22:00)
[2021-07-24] MEDS: HYDROMORPHONE 1MG/1ML INJ IV PRN (20:15)
[2021-07-24] MEDS: ATORVASTATIN 10 MG TAB PO SCH (20:25)
[2021-07-25] VITALS (8 sets, daily range): BP systolic 120–141; BP diastolic 73–90
[2021-07-25] MEDS: HYDROMORPHONE 1MG/1ML INJ IV PRN ×5 (01:25→20:32)
[2021-07-25] MEDS: SODIUM CHLORIDE 0.9% 1000ML 1,000 ML IV SCH ×2 (03:17→20:30)
[2021-07-25] MEDS: HYDROCODONE/APAP 5MG-325MG TAB PO PRN ×3 (04:45→15:24)
[2021-07-25] MEDS: MEROPENEM 500 MG in SODIUM CHLORIDE 0.9% 50ML 50 ML IV SCH ×3 (05:43→21:50)
[2021-07-25 05:45] LABS: BASOPHILS # (AUTO) 0.1 (0.0-0.1); BASOPHILS % 0.5 % (0.0-1.0); EOSINOPHILS # (AUTO) 0.4 (0.0-0.4); EOSINOPHILS % 2.4 % (0.0-6.0); HEMATOCRIT 27.7 % (34.2-44.1); HEMOGLOBIN 9.2 g/dL (12.0-16.0); LYMPHOCYTES # (AUTO) 1.5 (1.0-3.2); LYMPHOCYTES % 9.8 % (18.0-39.1); MEAN CORPUSCULAR HEMOGLOBIN 30.5 pg (28-32); MEAN CORPUSCULAR HGB CONC 33.2 g/dL (31-35); MEAN CORPUSCULAR VOLUME 91.7 fL (81-99); MONOCYTES # (AUTO) 0.7 (0.2-0.8); MONOCYTES % 4.7 % (4.4-11.3); NEUTROPHILS # (AUTO) 10.7 (2.1-6.9); PLATELET COUNT 357 x10e3/uL (140-360); RED BLOOD COUNT 3.02 x10e6/uL (3.6-5.1); RED CELL DISTRIBUTION WIDTH 14.6 % (11.7-14.4)
[2021-07-25 06:10] LABS: ALBUMIN 2.1 g/dL (3.5-5.0); ALBUMIN/GLOBULIN RATIO 0.5 (0.8-2.0); CALCIUM 8.8 mg/dL (8.4-10.2); CREATININE, SERUM 0.72 mg/dL (0.57-1.11)
[2021-07-25 07:15] LABS: BAND NEUTROPHILS % (MANUAL) 5 %; EOSINOPHILS % (MANUAL) 3 % (0-7); LYMPHOCYTES % (MANUAL) 7 % (19-48); MONOCYTES % (MANUAL) 3 % (3.4-9.0); MYELOCYTES % (MANUAL) 4 % (0-0); NEUTROPHILS % (MANUAL) 78 % (40-74); NUCLEATED RED BLOOD CELLS 1; PLATELET ESTIMATE ADEQUATE; PLATELET MORPHOLOGY COMMENT NORMAL; RBC MORPHOLOGY COMMENT NORMAL
[2021-07-25] MEDS: PANTOPRAZOLE SOD 40 MG TABEC PO SCH ×2 (07:49→17:12)
[2021-07-25] MEDS: DULOXETINE HCL 30 MG DELAYED RELEASE PO SCH ×2 (07:50→17:13)
[2021-07-25] MEDS: BUSPIRONE HCL 5 MG TAB PO SCH ×3 (07:50→20:30)
[2021-07-25] MEDS: LAMOTRIGINE 100 MG TAB PO SCH ×2 (07:50→17:13)
[2021-07-25] MEDS: INSULIN REGULAR, HUMAN 100 UNIT/1 ML SQ SCH ×4 (08:49→20:31)
[2021-07-25] MEDS ORDERED: LACTULOSE SYRUP 20 GM/30 ML UDC PO ONE (09:55)
[2021-07-25] MEDS ORDERED: POTASSIUM CHLORIDE 20 MEQ TAB CR PO STA (11:07)
[2021-07-25] MEDS ORDERED: POTASSIUM CHLORIDE 20 MEQ TAB CR PO ONE (11:45)
[2021-07-25] MEDS: ATORVASTATIN 10 MG TAB PO SCH (20:30)
[2021-07-26] VITALS (7 sets, daily range): BP systolic 98–141; BP diastolic 66–83
[2021-07-26] MEDS: HYDROMORPHONE 1MG/1ML INJ IV PRN ×4 (00:36→20:34)
[2021-07-26] MEDS: SODIUM CHLORIDE 0.9% 1000ML 1,000 ML IV SCH ×3 (04:36→19:40)
[2021-07-26 05:03] LABS: BASOPHILS # (AUTO) 0.1 (0.0-0.1); BASOPHILS % 0.5 % (0.0-1.0); EOSINOPHILS # (AUTO) 0.3 (0.0-0.4); EOSINOPHILS % 1.6 % (0.0-6.0); HEMATOCRIT 26.4 % (34.2-44.1); HEMOGLOBIN 8.8 g/dL (12.0-16.0); LYMPHOCYTES # (AUTO) 1.5 (1.0-3.2); LYMPHOCYTES % 9.4 % (18.0-39.1); MEAN CORPUSCULAR HEMOGLOBIN 30.4 pg (28-32); MEAN CORPUSCULAR HGB CONC 33.3 g/dL (31-35); MEAN CORPUSCULAR VOLUME 91.3 fL (81-99); MONOCYTES # (AUTO) 0.8 (0.2-0.8); MONOCYTES % 4.8 % (4.4-11.3); NEUTROPHILS # (AUTO) 11.8 (2.1-6.9); NEUTROPHILS % 74.5 % (38.7-80.0); PLATELET COUNT 384 x10e3/uL (140-360); RED BLOOD COUNT 2.89 x10e6/uL (3.6-5.1); RED CELL DISTRIBUTION WIDTH 14.6 % (11.7-14.4)
[2021-07-26] MEDS: MEROPENEM 500 MG in SODIUM CHLORIDE 0.9% 50ML 50 ML IV SCH ×3 (05:06→22:01)
[2021-07-26 05:23] LABS: ALBUMIN 2.2 g/dL (3.5-5.0); ALBUMIN/GLOBULIN RATIO 0.5 (0.8-2.0); ANION GAP 18.2 mmol/L (8-16); CALCIUM 8.4 mg/dL (8.4-10.2); CREATININE, SERUM 0.63 mg/dL (0.57-1.11); MAGNESIUM 1.7 MG/DL (1.3-2.1); POTASSIUM 3.2 mmol/L (3.5-5.1)
[2021-07-26] MEDS: POTASSIUM CHLORIDE 20MEQ/100ML 100 ML IV ONE ×2 (07:12→07:18)
[2021-07-26] MEDS ORDERED: BUPIVACAINE 0.25% 30ML SDV ONE (07:18)
[2021-07-26] MEDS: INSULIN REGULAR, HUMAN 100 UNIT/1 ML SQ SCH ×4 (07:30→20:44)
[2021-07-26] MEDS: PANTOPRAZOLE SOD 40 MG TABEC PO SCH ×2 (07:30→17:08)
[2021-07-26] MEDS: LAMOTRIGINE 100 MG TAB PO SCH ×2 (09:00→17:11)
[2021-07-26] MEDS ORDERED: POTASSIUM CHLORIDE 20 MEQ TAB CR PO NR (09:00)
[2021-07-26] MEDS: DULOXETINE HCL 30 MG DELAYED RELEASE PO SCH ×2 (09:00→17:11)
[2021-07-26] MEDS: BUSPIRONE HCL 5 MG TAB PO SCH ×3 (09:00→20:35)
[2021-07-26] MEDS ORDERED: HYDROMORPHONE 1MG/1ML INJ ONE (10:16)
[2021-07-26] MEDS ORDERED: ACETAMINOPHEN 1000 MG/100 ML 100 ML IV ONE (10:16)
[2021-07-26] MEDS ORDERED: METOCLOPRAMIDE HCL 10 MG/2ML VIAL ONE (10:32)
[2021-07-26] MEDS ORDERED: ONDANSETRON HCL INJ 2MG/ML 2ML 2 MG/ML VIAL ONE ×2 (10:32→19:39)
[2021-07-26] MEDS: HYDROCODONE/APAP 5MG-325MG TAB PO PRN ×3 (12:40→23:15)
[2021-07-26] MEDS: ONDANSETRON HCL 4 MG ORAL DISINTEGRATING TAB PO PRN ×2 (14:58→20:44)
[2021-07-26] MEDS ORDERED: Vancomycin IV 1 GM in SODIUM CHLORIDE 0.9% 250ML 250 ML IV ONE (17:00)
[2021-07-26] MEDS ORDERED: POVIDONE IODINE 0.05% 0.05 % ML PO ONE (19:39)
[2021-07-26] MEDS ORDERED: GLYCOPYRROLATE INJ 0.2 MG/ML VIAL ONE (19:39)
[2021-07-26] MEDS ORDERED: LIDOCAINE HCL 2% LOCAL INJ 5 ML SDV VIAL INJ ONE (19:39)
[2021-07-26] MEDS ORDERED: SEVOFLURANE INHAL SOLN 250 ML PEN BTL ONE (19:39)
[2021-07-26] MEDS ORDERED: CEFOXITIN SOD 1 GM VIAL ONE (19:39)
[2021-07-26] MEDS ORDERED: ROCURONIUM BROMIDE 10 MG/ML 5ML VIAL IV ONE (19:39)
[2021-07-26] MEDS ORDERED: PROPOFOL IV EMULSION 10 MG/ML 20 ML VIAL ONE (19:39)
[2021-07-26] MEDS ORDERED: NEOSTIGMINE 1 MG/ML 10ML VIAL ONE (19:39)
[2021-07-26] MEDS: ATORVASTATIN 10 MG TAB PO SCH (21:00)
[2021-07-26] MEDS: TEMAZEPAM 7.5 MG CAP PO PRN (23:15)
[2021-07-27] VITALS (7 sets, daily range): BP systolic 101–135; BP diastolic 66–77
[2021-07-27] MEDS: HYDROMORPHONE 1MG/1ML INJ IV PRN ×6 (01:00→21:27)
[2021-07-27] MEDS: SODIUM CHLORIDE 0.9% 1000ML 1,000 ML IV SCH ×3 (03:23→16:00)
[2021-07-27 06:31] LABS: ALBUMIN/GLOBULIN RATIO 0.5 (0.8-2.0); ANION GAP 17.4 mmol/L (8-16); CREATININE, SERUM 0.65 mg/dL (0.57-1.11); POTASSIUM 3.4 mmol/L (3.5-5.1)
[2021-07-27 06:33] LABS: BASOPHILS # (AUTO) 0.1 (0.0-0.1); BASOPHILS % 0.3 % (0.0-1.0); EOSINOPHILS # (AUTO) 0.1 (0.0-0.4); EOSINOPHILS % 0.7 % (0.0-6.0); HEMATOCRIT 28.5 % (34.2-44.1); LYMPHOCYTES # (AUTO) 1.6 (1.0-3.2); LYMPHOCYTES % 8.1 % (18.0-39.1); MEAN CORPUSCULAR HEMOGLOBIN 30.2 pg (28-32); MEAN CORPUSCULAR HGB CONC 31.6 g/dL (31-35); MEAN CORPUSCULAR VOLUME 95.6 fL (81-99); MONOCYTES # (AUTO) 0.7 (0.2-0.8); MONOCYTES % 3.6 % (4.4-11.3); NEUTROPHILS # (AUTO) 16.4 (2.1-6.9); NEUTROPHILS % 81.2 % (38.7-80.0); PLATELET COUNT 454 x10e3/uL (140-360); RED BLOOD COUNT 2.98 x10e6/uL (3.6-5.1); RED CELL DISTRIBUTION WIDTH 15.1 % (11.7-14.4)
[2021-07-27] MEDS: MEROPENEM 500 MG in SODIUM CHLORIDE 0.9% 50ML 50 ML IV SCH ×3 (06:35→21:27)
[2021-07-27] MEDS: PANTOPRAZOLE SOD 40 MG TABEC PO SCH ×2 (08:05→15:59)
[2021-07-27] MEDS: INSULIN REGULAR, HUMAN 100 UNIT/1 ML SQ SCH ×4 (08:06→20:24)
[2021-07-27] MEDS: DULOXETINE HCL 30 MG DELAYED RELEASE PO SCH ×2 (08:07→16:00)
[2021-07-27] MEDS: BUSPIRONE HCL 5 MG TAB PO SCH ×3 (08:07→20:21)
[2021-07-27] MEDS: LAMOTRIGINE 100 MG TAB PO SCH ×2 (08:07→16:00)
[2021-07-27] MEDS: HYDROCODONE/APAP 5MG-325MG TAB PO PRN ×2 (12:20→19:46)
[2021-07-27] MEDS: ATORVASTATIN 10 MG TAB PO SCH (20:21)
[2021-07-28] VITALS (7 sets, daily range): BP systolic 113–147; BP diastolic 74–88
[2021-07-28] MEDS: HYDROMORPHONE 1MG/1ML INJ IV PRN ×2 (01:39→20:54)
[2021-07-28] MEDS: SODIUM CHLORIDE 0.9% 1000ML 1,000 ML IV SCH ×2 (04:54→11:51)
[2021-07-28] MEDS: MEROPENEM 500 MG in SODIUM CHLORIDE 0.9% 50ML 50 ML IV SCH ×3 (05:39→21:52)
[2021-07-28] MEDS: HYDROCODONE/APAP 5MG-325MG TAB PO PRN ×5 (05:48→23:43)
[2021-07-28 06:59] LABS: BASOPHILS # (AUTO) 0.1 (0.0-0.1); BASOPHILS % 0.3 % (0.0-1.0); EOSINOPHILS # (AUTO) 0.3 (0.0-0.4); EOSINOPHILS % 1.6 % (0.0-6.0); HEMATOCRIT 27.3 % (34.2-44.1); HEMOGLOBIN 8.6 g/dL (12.0-16.0); LYMPHOCYTES # (AUTO) 1.3 (1.0-3.2); LYMPHOCYTES % 6.8 % (18.0-39.1); MEAN CORPUSCULAR HEMOGLOBIN 30.3 pg (28-32); MEAN CORPUSCULAR HGB CONC 31.5 g/dL (31-35); MEAN CORPUSCULAR VOLUME 96.1 fL (81-99); MONOCYTES # (AUTO) 0.8 (0.2-0.8); MONOCYTES % 4.1 % (4.4-11.3); NEUTROPHILS # (AUTO) 15.8 (2.1-6.9); NEUTROPHILS % 81.6 % (38.7-80.0); PLATELET COUNT 440 x10e3/uL (140-360); RED BLOOD COUNT 2.84 x10e6/uL (3.6-5.1)
[2021-07-28 07:21] LABS: ALBUMIN/GLOBULIN RATIO 0.5 (0.8-2.0); ANION GAP 15.4 mmol/L (8-16); CREATININE, SERUM 0.6 mg/dL (0.57-1.11); POTASSIUM 3.4 mmol/L (3.5-5.1)
[2021-07-28] MEDS: PANTOPRAZOLE SOD 40 MG TABEC PO SCH ×2 (08:11→16:24)
[2021-07-28] MEDS: BUSPIRONE HCL 5 MG TAB PO SCH ×3 (08:12→20:56)
[2021-07-28] MEDS: LAMOTRIGINE 100 MG TAB PO SCH ×2 (08:12→16:24)
[2021-07-28] MEDS: DULOXETINE HCL 30 MG DELAYED RELEASE PO SCH ×2 (08:12→16:24)
[2021-07-28] MEDS: INSULIN REGULAR, HUMAN 100 UNIT/1 ML SQ SCH ×4 (08:16→20:50)
[2021-07-28] MEDS: ATORVASTATIN 10 MG TAB PO SCH (20:56)
[2021-07-29] VITALS (8 sets, daily range): BP systolic 97–149; BP diastolic 58–92
[2021-07-29] MEDS: HYDROMORPHONE 1MG/1ML INJ IV PRN ×4 (02:04→23:22)
[2021-07-29] MEDS: SODIUM CHLORIDE 0.9% 1000ML 1,000 ML IV SCH ×3 (02:54→11:25)
[2021-07-29] MEDS: HYDROCODONE/APAP 5MG-325MG TAB PO PRN ×3 (04:30→12:30)
[2021-07-29 05:49] LABS: BASOPHILS % 0.3 % (0.0-1.0); EOSINOPHILS # (AUTO) 0.3 (0.0-0.4); EOSINOPHILS % 1.9 % (0.0-6.0); HEMATOCRIT 24.5 % (34.2-44.1); HEMOGLOBIN 7.8 g/dL (12.0-16.0); LYMPHOCYTES # (AUTO) 1.2 (1.0-3.2); MEAN CORPUSCULAR HEMOGLOBIN 30.6 pg (28-32); MEAN CORPUSCULAR HGB CONC 31.8 g/dL (31-35); MEAN CORPUSCULAR VOLUME 96.1 fL (81-99); MONOCYTES # (AUTO) 0.5 (0.2-0.8); MONOCYTES % 3.9 % (4.4-11.3); NEUTROPHILS # (AUTO) 10.9 (2.1-6.9); NEUTROPHILS % 80.4 % (38.7-80.0); PLATELET COUNT 471 x10e3/uL (140-360); RED BLOOD COUNT 2.55 x10e6/uL (3.6-5.1); RED CELL DISTRIBUTION WIDTH 14.9 % (11.7-14.4)
[2021-07-29] MEDS: MEROPENEM 500 MG in SODIUM CHLORIDE 0.9% 50ML 50 ML IV SCH ×3 (06:09→21:12)
[2021-07-29 06:24] LABS: ALBUMIN 1.9 g/dL (3.5-5.0); ALBUMIN/GLOBULIN RATIO 0.5 (0.8-2.0); CALCIUM 7.8 mg/dL (8.4-10.2); CREATININE, SERUM 0.61 mg/dL (0.57-1.11)
[2021-07-29] MEDS: BUSPIRONE HCL 5 MG TAB PO SCH ×3 (08:08→20:45)
[2021-07-29] MEDS: PANTOPRAZOLE SOD 40 MG TABEC PO SCH ×2 (08:08→15:54)
[2021-07-29] MEDS: LAMOTRIGINE 100 MG TAB PO SCH ×2 (08:08→15:54)
[2021-07-29] MEDS: DULOXETINE HCL 30 MG DELAYED RELEASE PO SCH ×2 (08:08→15:54)
[2021-07-29] MEDS: FERROUS SULFATE 325 MG TAB PO SCH (08:08)
[2021-07-29] MEDS: INSULIN REGULAR, HUMAN 100 UNIT/1 ML SQ SCH ×4 (08:09→21:02)
[2021-07-29] MEDS ORDERED: FUROSEMIDE INJ 10 MG/ML 2 ML VIAL IV ONE (10:30)
[2021-07-29] MEDS ORDERED: FUROSEMIDE 20 MG TAB PO ONE (11:30)
[2021-07-29] MEDS: ATORVASTATIN 10 MG TAB PO SCH (20:45)
[2021-07-30] VITALS: BP 120/87
[2021-07-30] MEDS: HYDROMORPHONE 1MG/1ML INJ IV PRN ×2 (03:24→07:32)
[2021-07-30 04:00] VITALS: BP 123/64
[2021-07-30] MEDS: MEROPENEM 500 MG in SODIUM CHLORIDE 0.9% 50ML 50 ML IV SCH (05:10)
[2021-07-30 05:57] LABS: BASOPHILS # (AUTO) 0.1 (0.0-0.1); BASOPHILS % 0.4 % (0.0-1.0); EOSINOPHILS # (AUTO) 0.3 (0.0-0.4); EOSINOPHILS % 1.9 % (0.0-6.0); HEMATOCRIT 24.2 % (34.2-44.1); HEMOGLOBIN 7.7 g/dL (12.0-16.0); LYMPHOCYTES # (AUTO) 1.1 (1.0-3.2); LYMPHOCYTES % 7.6 % (18.0-39.1); MEAN CORPUSCULAR HEMOGLOBIN 30.6 pg (28-32); MEAN CORPUSCULAR HGB CONC 31.8 g/dL (31-35); MONOCYTES # (AUTO) 0.6 (0.2-0.8); MONOCYTES % 4.3 % (4.4-11.3); NEUTROPHILS # (AUTO) 11.3 (2.1-6.9); NEUTROPHILS % 81.3 % (38.7-80.0); PLATELET COUNT 508 x10e3/uL (140-360); RED BLOOD COUNT 2.52 x10e6/uL (3.6-5.1); RED CELL DISTRIBUTION WIDTH 14.7 % (11.7-14.4)
[2021-07-30 06:28] LABS: ALBUMIN/GLOBULIN RATIO 0.5 (0.8-2.0); ANION GAP 11.2 mmol/L (8-16); CALCIUM 7.9 mg/dL (8.4-10.2); CREATININE, SERUM 0.63 mg/dL (0.57-1.11); POTASSIUM 3.2 mmol/L (3.5-5.1)
[2021-07-30 07:50] VITALS: BP 153/84
[2021-07-30] MEDS: DULOXETINE HCL 30 MG DELAYED RELEASE PO SCH (07:57)
[2021-07-30] MEDS: PANTOPRAZOLE SOD 40 MG TABEC PO SCH (07:57)
[2021-07-30] MEDS: FERROUS SULFATE 325 MG TAB PO SCH (07:57)
[2021-07-30] MEDS: BUSPIRONE HCL 5 MG TAB PO SCH (07:57)
[2021-07-30] MEDS: LAMOTRIGINE 100 MG TAB PO SCH (07:58)
[2021-07-30] MEDS: INSULIN REGULAR, HUMAN 100 UNIT/1 ML SQ SCH (07:58)
[2021-07-30 08:52] VITALS: BP 153/84
[2021-07-30] MEDS ORDERED: PROTONIX40 MG PO (10:08)
[2021-07-30] MEDS ORDERED: TYLENOL EXTRA500 MG PO (10:09)
[2021-07-30] MEDS ORDERED: POTASSIUM CHLO10 ME1 PO (10:21)
[2021-07-30] MEDS ORDERED: LASIX20 MG PO (10:27)
== END 2021-07-30 10:31 | disposition home or self-care (01) | DRG 854 ==
LOC: ER 17:44 → ERHOLD 21:25 → MED/SURG 07-20 03:37
PROVIDERS: ADMIT Internal Medicine; ATTEND Internal Medicine
PROC: 02HV33Z Insertion of Infusion Device into Superior Vena Cava, Percutaneous Approach (ICD-10-PCS; 2021-07-19)
PROC: 0DTJ4ZZ Resection of Appendix, Percutaneous Endoscopic Approach (ICD-10-PCS; 2021-07-20)
PROC: 0W9J40Z Drainage of Pelvic Cavity with Drainage Device, Percutaneous Endoscopic Approach (ICD-10-PCS; 2021-07-20)
PROC: 0DTJ4ZZ Resection of Appendix, Percutaneous Endoscopic Approach (ICD-10-PCS; principal; 2021-07-26 08:00)
DX: A41.9 Sepsis, unspecified organism (principal); D62 Acute posthemorrhagic anemia; R18.8 Other ascites; K68.11 Postprocedural retroperitoneal abscess; K35.890 Other acute appendicitis without perforation or gangrene; E87.6 Hypokalemia; F31.9 Bipolar disorder, unspecified; E78.5 Hyperlipidemia, unspecified; E11.65 Type 2 diabetes mellitus with hyperglycemia; E66.9 Obesity, unspecified; Z68.31 Body mass index [BMI] 31.0-31.9, adult; F19.10 Other psychoactive substance abuse, uncomplicated; J44.9 Chronic obstructive pulmonary disease, unspecified; E11.51 Type 2 diabetes mellitus with diabetic peripheral angiopathy without gangrene; Z79.899 Other long term (current) drug therapy; K36 Other appendicitis; Z20.822 Contact with and (suspected) exposure to COVID-19; M06.9 Rheumatoid arthritis, unspecified; M79.7 Fibromyalgia; Z88.2 Allergy status to sulfonamides
CPT/HCPCS: 36415; 36569; 71045; 74018; 74176; 74177; 80048; 80053; 80307; 80320; 80329; 81001; 82150; 82948; 83540; 83605; 83690; 83735; 84466; 84702; 85025; 86850; 86900; 87040; 87071; 87205; 88304; 93005; 96361; 96372; 99284; J0330; J0461; J0694; J1100; J1170; J1817; J1885; J2001; J2185; J2250; J2270; J2405; J2543; J2710; J2765; J3010; J3370; J3480; J7030; J7050; Q0162; Q9967; U0002

== ENCOUNTER 2021-08-01 19:30 | Inpatient (IN) | payer MEDICARE, OTHER ==
[~2021-08-01] VITALS: Ht 157.5 cm; Wt 78.9 kg
[~2021-08-01 19:30] MED LIST changes: +ATORVASTATIN CA10 MG PO; +BISACODYL5 MG PO; +BUSPIRONE HCL15 MG PO; +CYMBALTA30 MG; +DIPHENHYDRAMINE25 M1 PO; +HYDROCODON-ACE1 EA11 PO; +LAMICTAL5 MG PO; +LASIX20 MG PO; +LISINOPRIL10 MG PO; +POTASSIUM CHLO10 ME1 PO; +PROTONIX40 MG PO; +TYLENOL EXTRA500 MG PO; +ZOFRAN4 MG PO
[2021-08-01 20:12] LABS: BASOPHILS % 0.3 % (0.0-1.0); EOSINOPHILS # (AUTO) 0.5 (0.0-0.4); EOSINOPHILS % 3.8 % (0.0-6.0); LYMPHOCYTES # (AUTO) 1.6 (1.0-3.2); LYMPHOCYTES % 13.6 % (18.0-39.1); MEAN CORPUSCULAR HEMOGLOBIN 30.2 pg (28-32); MEAN CORPUSCULAR HGB CONC 31.3 g/dL (31-35); MEAN CORPUSCULAR VOLUME 96.7 fL (81-99); MONOCYTES # (AUTO) 0.6 (0.2-0.8); NEUTROPHILS # (AUTO) 8.5 (2.1-6.9); NEUTROPHILS % 72.4 % (38.7-80.0); PLATELET COUNT 539 x10e3/uL (140-360); RED BLOOD COUNT 2.15 x10e6/uL (3.6-5.1); RED CELL DISTRIBUTION WIDTH 14.7 % (11.7-14.4)
[2021-08-01 20:17] LABS: HEMATOCRIT 20.8 % (34.2-44.1); HEMOGLOBIN 6.5 g/dL (12.0-16.0)
[2021-08-01 20:38] LABS: ALBUMIN 2.1 g/dL (3.5-5.0); ALBUMIN/GLOBULIN RATIO 0.5 (0.8-2.0); ANION GAP 12.1 mmol/L (8-16); CREATININE, SERUM 0.7 mg/dL (0.57-1.11); POTASSIUM 3.1 mmol/L (3.5-5.1)
[2021-08-01 20:48] LABS: AMYLASE 26 U/L (25-125)
[2021-08-01] MEDS ORDERED: IOPAMIDOL 370 MG/ML 200 ML INFUS..BTL INJ ONE (21:02)
[2021-08-01] MEDS ORDERED: SODIUM CHLORIDE 0.9% 50ML 50 ML ONE (21:02)
[2021-08-01] MEDS ORDERED: DEXTROSE 50% SYRINGE 50 ML IV PRN (23:15)
[2021-08-01] MEDS ORDERED: SODIUM CHLORIDE 0.9% 250ML 250 ML IV ONE (23:15)
[2021-08-02] VITALS (10 sets, daily range): BP systolic 99–143; BP diastolic 68–90
[2021-08-02] MEDS: PIPERACILLIN/TAZOBACTAM 3.375 GM in SODIUM CHLORIDE 0.9% 50ML 50 ML IV SCH ×2 (00:36→08:25)
[2021-08-02] MEDS: SODIUM CHLORIDE 0.9% 1000ML 1,000 ML IV SCH ×4 (00:36→23:14)
[2021-08-02] MEDS: ONDANSETRON HCL INJ 2MG/ML 2ML 2 MG/ML VIAL IV PRN ×2 (00:48→04:53)
[2021-08-02] MEDS: Morphine 4mg Syringe 4 MG/ML INJ IV PRN ×5 (00:48→17:30)
[2021-08-02] MEDS ORDERED: PROAIR HFA INH8.5 GM (01:51)
[2021-08-02] MEDS ORDERED: [UNRECOGNIZED DRUG - OTHER] (01:51)
[2021-08-02] MEDS ORDERED: XIGDUO XR 10 M1 EAC1 PO (01:51)
[2021-08-02] MEDS ORDERED: MELATONIN3 MG PO (01:51)
[2021-08-02] MEDS ORDERED: DOCUSATE SODIU100 MG PO (01:51)
[2021-08-02] MEDS ORDERED: PROBIOTIC (01:51)
[2021-08-02] MEDS ORDERED: CLONAZEPAM1 MG PO (02:49)
[2021-08-02] MEDS ORDERED: SEROQUEL100 MG PO (02:49)
[2021-08-02] MEDS ORDERED: IBUPROFEN600 MG PO (02:49)
[2021-08-02] MEDS ORDERED: SODIUM CHLORIDE 0.9% 250ML 250 ML ONE (03:21)
[2021-08-02 07:47] LABS: BASOPHILS # (AUTO) 0.1 (0.0-0.1); BASOPHILS % 0.6 % (0.0-1.0); EOSINOPHILS # (AUTO) 0.5 (0.0-0.4); EOSINOPHILS % 4.5 % (0.0-6.0); HEMATOCRIT 26.8 % (34.2-44.1); HEMOGLOBIN 8.4 g/dL (12.0-16.0); LYMPHOCYTES # (AUTO) 1.5 (1.0-3.2); LYMPHOCYTES % 13.2 % (18.0-39.1); MEAN CORPUSCULAR HEMOGLOBIN 29.8 pg (28-32); MEAN CORPUSCULAR HGB CONC 31.3 g/dL (31-35); MONOCYTES # (AUTO) 0.7 (0.2-0.8); MONOCYTES % 5.9 % (4.4-11.3); NEUTROPHILS # (AUTO) 8.2 (2.1-6.9); NEUTROPHILS % 71.6 % (38.7-80.0); PLATELET COUNT 537 x10e3/uL (140-360); RED BLOOD COUNT 2.82 x10e6/uL (3.6-5.1); RED CELL DISTRIBUTION WIDTH 16.9 % (11.7-14.4)
[2021-08-02] MEDS: INSULIN REGULAR, HUMAN 100 UNIT/1 ML SQ SCH ×4 (08:31→21:02)
[2021-08-02 12:05] LABS: ALBUMIN 2.1 g/dL (3.5-5.0); ALBUMIN/GLOBULIN RATIO 0.5 (0.8-2.0); ANION GAP 14.6 mmol/L (8-16); CALCIUM 8.4 mg/dL (8.4-10.2); CREATININE, SERUM 0.71 mg/dL (0.57-1.11); POTASSIUM 3.6 mmol/L (3.5-5.1)
[2021-08-02] MEDS ORDERED: IBUPROFEN 600 MG TAB PO PRN (12:15)
[2021-08-02] MEDS ORDERED: BISACODYL 5 MG TAB EC PO PRN (12:15)
[2021-08-02] MEDS ORDERED: ONDANSETRON HCL INJ 2MG/ML 2ML 2 MG/ML VIAL IV PRN (12:30)
[2021-08-02] MEDS ORDERED: MELATONIN 5 MG TABLET PO PRN (13:15)
[2021-08-02] MEDS: MEROPENEM 1 GM in SODIUM CHLORIDE 0.9% 100 ML IV SCH ×2 (13:47→21:03)
[2021-08-02] MEDS: DOCUSATE SODIUM 100 MG CAP PO SCH (16:16)
[2021-08-02] MEDS: DULOXETINE HCL 30 MG DELAYED RELEASE PO SCH (16:17)
[2021-08-02] MEDS: PANTOPRAZOLE SODIUM 40 MG SUSPDR.PKT PO SCH (16:17)
[2021-08-02] MEDS ORDERED: PANTOPRAZOLE SOD 40 MG TABEC PO SCH (17:00)
[2021-08-02] MEDS ORDERED: QUETIAPINE FUMARATE 100 MG TAB PO SCH (21:00)
[2021-08-02] MEDS ORDERED: LISINOPRIL 20 MG TAB PO SCH (21:00)
[2021-08-02] MEDS ORDERED: CLONAZEPAM 1 MG TAB PO SCH (21:00)
[2021-08-03] VITALS: BP 98/65
[2021-08-03] MEDS: Morphine 4mg Syringe 4 MG/ML INJ IV PRN ×2 (03:53→09:18)
[2021-08-03 04:00] VITALS: BP 127/82
[2021-08-03] MEDS: MEROPENEM 1 GM in SODIUM CHLORIDE 0.9% 100 ML IV SCH (05:40)
[2021-08-03] MEDS: SODIUM CHLORIDE 0.9% 1000ML 1,000 ML IV SCH (05:40)
[2021-08-03] MEDS: DULOXETINE HCL 30 MG DELAYED RELEASE PO SCH (08:46)
[2021-08-03] MEDS: DOCUSATE SODIUM 100 MG CAP PO SCH (08:46)
[2021-08-03] MEDS: PANTOPRAZOLE SODIUM 40 MG SUSPDR.PKT PO SCH (08:47)
[2021-08-03] MEDS ORDERED: FUROSEMIDE 20 MG TAB PO SCH (09:00)
[2021-08-03] MEDS: INSULIN REGULAR, HUMAN 100 UNIT/1 ML SQ SCH (10:02)
[2021-08-03 10:23] VITALS: BP 115/99
[2021-08-03 12:42] VITALS: BP 147/87
[2021-08-03] MEDS ORDERED: IBUPROFEN 400 MG TAB PO ONE (13:00)
== END 2021-08-03 12:46 | disposition home or self-care (01) | DRG 863 ==
LOC: ER 19:36 → ERHOLD 23:29 → MED/SURG2 08-02 01:24
PROVIDERS: ADMIT Internal Medicine; ATTEND Internal Medicine
PROC: 30243N1 Transfusion of Nonautologous Red Blood Cells into Central Vein, Percutaneous Approach (ICD-10-PCS; principal; 2021-08-01)
DX: T81.43XA Infection following a procedure, organ and space surgical site, initial encounter (principal); K56.7 Ileus, unspecified; D62 Acute posthemorrhagic anemia; E11.9 Type 2 diabetes mellitus without complications; K52.9 Noninfective gastroenteritis and colitis, unspecified; E78.5 Hyperlipidemia, unspecified; M06.9 Rheumatoid arthritis, unspecified; F31.9 Bipolar disorder, unspecified; I10 Essential (primary) hypertension; Z20.822 Contact with and (suspected) exposure to COVID-19; M79.7 Fibromyalgia
CPT/HCPCS: 36415; 74177; 80053; 82150; 82948; 83690; 84702; 85025; 86850; 86900; 86920; 96360; 96361; 96372; 99284; J2185; J2270; J2405; J2543; J7030; J7050; P9016; Q9967; U0002

== ENCOUNTER 2022-11-12 09:56 | Emergency (ER) | payer MEDICARE ==
[~2022-11-12] VITALS: Ht 157.5 cm; Wt 78.9 kg
[~2022-11-12 09:56] MED LIST changes: +CLONAZEPAM1 MG PO; +DOCUSATE SODIU100 MG PO; +IBUPROFEN600 MG PO; +MELATONIN3 MG PO; +PROAIR HFA INH8.5 GM; +PROBIOTIC; +SEROQUEL100 MG PO; +XIGDUO XR 10 M1 EAC1 PO; +[UNRECOGNIZED DRUG - OTHER]
[2022-11-12 10:16] LABS: BASOPHILS # (AUTO) 0.1 (0.0-0.1); BASOPHILS % 1.2 % (0.0-1.0); EOSINOPHILS # (AUTO) 0.4 (0.0-0.4); HEMATOCRIT 43.8 % (34.2-44.1); HEMOGLOBIN 13.3 g/dL (12.0-16.0); LYMPHOCYTES # (AUTO) 2.1 (1.0-3.2); LYMPHOCYTES % 25.6 % (18.0-39.1); MEAN CORPUSCULAR HEMOGLOBIN 30.4 pg (28-32); MEAN CORPUSCULAR HGB CONC 30.4 g/dL (31-35); MONOCYTES # (AUTO) 0.4 (0.2-0.8); MONOCYTES % 4.6 % (4.4-11.3); NEUTROPHILS # (AUTO) 5.3 (2.1-6.9); NEUTROPHILS % 63.1 % (38.7-80.0); PLATELET COUNT 374 x10e3/uL (140-360); RED BLOOD COUNT 4.38 x10e6/uL (3.6-5.1); RED CELL DISTRIBUTION WIDTH 12.2 % (11.7-14.4)
[2022-11-12 10:40] LABS: ALBUMIN/GLOBULIN RATIO 1.1 (0.8-2.0); ANION GAP 14.1 mmol/L (8-16); CALCIUM 9.9 mg/dL (8.4-10.2); CREATININE, SERUM 0.99 mg/dL (0.57-1.11); POTASSIUM 4.1 mmol/L (3.5-5.1)
[2022-11-12 10:53] LABS: LIPASE 71 U/L (8-78)
== END 2022-11-12 13:09 | disposition home or self-care (01) ==
LOC: ER 10:00
DX: R07.89 Other chest pain (principal); E11.65 Type 2 diabetes mellitus with hyperglycemia; I10 Essential (primary) hypertension; E78.5 Hyperlipidemia, unspecified; F41.9 Anxiety disorder, unspecified; M06.9 Rheumatoid arthritis, unspecified; M79.7 Fibromyalgia; R94.31 Abnormal electrocardiogram [ECG] [EKG]
CPT/HCPCS: 36415; 71045; 80053; 82948; 83690; 84484; 85025; 85379; 93005; 99284

== ENCOUNTER 2022-11-25 11:43 | Emergency (ER) | payer OTHER, MEDICARE ==
[~2022-11-25] VITALS: Ht 157.5 cm; Wt 78.9 kg
[2022-11-25] MEDS ORDERED: ONDANSETRON HCL INJ 2MG/ML 2ML 2 MG/ML VIAL IV STA (12:17)
[2022-11-25] MEDS ORDERED: SODIUM CHLORIDE 0.9% 1000ML 1,000 ML IV STA ×2 (12:17→14:49)
[2022-11-25] MEDS ORDERED: INSULIN REGULAR, HUMAN 100 UNIT/1 ML IV ONE (12:45)
[2022-11-25 12:52] LABS: BASOPHILS # (AUTO) 0.1 (0.0-0.1); EOSINOPHILS # (AUTO) 0.3 (0.0-0.4); EOSINOPHILS % 3.2 % (0.0-6.0); HEMOGLOBIN 13.7 g/dL (12.0-16.0); LYMPHOCYTES # (AUTO) 1.9 (1.0-3.2); LYMPHOCYTES % 19.2 % (18.0-39.1); MEAN CORPUSCULAR HEMOGLOBIN 31.9 pg (28-32); MEAN CORPUSCULAR HGB CONC 35.1 g/dL (31-35); MEAN CORPUSCULAR VOLUME 90.7 fL (81-99); MONOCYTES # (AUTO) 0.5 (0.2-0.8); MONOCYTES % 4.9 % (4.4-11.3); NEUTROPHILS # (AUTO) 7.2 (2.1-6.9); NEUTROPHILS % 71.1 % (38.7-80.0); PLATELET COUNT 406 x10e3/uL (140-360); RED CELL DISTRIBUTION WIDTH 12.2 % (11.7-14.4)
[2022-11-25 13:20] LABS: ALANINE AMINOTRANSFERASE 17 IU/L (0-55); ALKALINE PHOSPHATASE 152 IU/L (40-150); ANION GAP 17.1 mmol/L (8-16); BLOOD UREA NITROGEN 28 mg/dL (7-26); BUN/CREATININE RATIO 27 (6-25); CALCIUM 9.6 mg/dL (8.4-10.2); CARBON DIOXIDE 22 mmol/L (22-29); CHLORIDE 99 mmol/L (98-107); CREATINE KINASE 75 IU/L (29-168); CREATININE, SERUM 1.02 mg/dL (0.57-1.11); POTASSIUM 4.1 mmol/L (3.5-5.1); SODIUM 134 mmol/L (136-145)
[2022-11-25 13:24] LABS: GLUCOSE 553 mg/dL (74-118)
[2022-11-25 13:29] LABS: CLARITY,URINE TURBID (CLEAR); COLOR,URINE YELLOW (YELLOW); LEUKOCYTE ESTERASE ,URINE NEGATIVE (NEGATIVE)
[2022-11-25 13:30] LABS: KETONES,URINE NEGATIVE (NEGATIVE); NITRITE,URINE NEGATIVE (NEGATIVE); PROTEIN,URINE DIPSTICK NEGATIVE (NEGATIVE); URINE UROBILINOGEN 0.2 mg/dL (0.2 - 1)
[2022-11-25 13:35] LABS: BACTERIA,URINE FEW /HPF; EPITHELIAL CELLS,URINE MODERATE /LPF; WBC,URINE (MAN) 21-50 /HPF (0-5)
[2022-11-25] MEDS ORDERED: INSULIN REGULAR, HUMAN 100 UNIT/1 ML SQ ONE (15:00)
== END 2022-11-25 16:51 | disposition home or self-care (01) ==
LOC: ER 11:59
DX: E11.65 Type 2 diabetes mellitus with hyperglycemia (principal); I10 Essential (primary) hypertension; E78.5 Hyperlipidemia, unspecified; F41.9 Anxiety disorder, unspecified; M06.9 Rheumatoid arthritis, unspecified; M79.7 Fibromyalgia; F31.9 Bipolar disorder, unspecified; R94.31 Abnormal electrocardiogram [ECG] [EKG]
CPT/HCPCS: 36415; 71046; 80053; 81001; 82550; 82553; 82948; 84484; 85025; 93005; 99284; J1817; J2405; J7030

== ENCOUNTER 2024-07-07 12:30 | Inpatient (IN) | payer MEDICARE ==
[~2024-07-07] VITALS: Ht 157.5 cm; Wt 74.8 kg
[~2024-07-07 12:30] MED LIST changes: +ACETAMINOPHEN-1 EAC4 PO; +ACETAMINOPHEN325 M1 PO; +AMLODIPINE BESY10 MG PO; +BACTRIM DS TAB1 EACH PO; +CAPLYTA42 MG; +CEFUROXIME250 MG PO; +FERROUS SULFAT325 MG PO; +FLECTOR1 EACH PO; +HUMALOG MI100 UNIT/2 SQ; +HUMULIN R100 UNIT/2 SQ; +INGREZZA80 MG; +JANUVIA100 MG PO; +LANTUS 3ML100 UNITS/ SQ; +LIDOCAINE1 EACH TOP; +LIPITOR20 MG PO; +MULTI-VITAMIN1 EACH PO; +MUPIROCIN22 GM TOP; +NAPROSYN500 MG PO; +NEURONTIN300 MG PO; +NICODERM CQ1 EACH TOP; +TRAZODONE HCL100 MG PO; +VITAMIN C 500500 MG PO; +XIGDUO XR 10 M1 EACH
[2024-07-07 13:05] LABS: BASOPHILS # (AUTO) 0.1 (0.0-0.1); BASOPHILS % 0.5 % (0.0-1.0); EOSINOPHILS # (AUTO) 0.1 (0.0-0.4); EOSINOPHILS % 1.2 % (0.0-6.0); HEMATOCRIT 31.7 % (34.2-44.1); HEMOGLOBIN 10.4 g/dL (12.0-16.0); LYMPHOCYTES # (AUTO) 1.1 (1.0-3.2); LYMPHOCYTES % 10.1 % (18.0-39.1); MEAN CORPUSCULAR HEMOGLOBIN 30.2 pg (28-32); MEAN CORPUSCULAR HGB CONC 32.8 g/dL (31-35); MEAN CORPUSCULAR VOLUME 92.2 fL (81-99); MONOCYTES # (AUTO) 0.5 (0.2-0.8); MONOCYTES % 4.6 % (4.4-11.3); NEUTROPHILS # (AUTO) 9.1 (2.1-6.9); NEUTROPHILS % 83.1 % (38.7-80.0); PLATELET COUNT 320 x10e3/uL (140-360); RED BLOOD COUNT 3.44 x10e6/uL (3.6-5.1); RED CELL DISTRIBUTION WIDTH 12.1 % (11.7-14.4); WHITE BLOOD COUNT 10.98 x10e3/uL (4.8-10.8)
[2024-07-07] MEDS: SODIUM CHLORIDE 0.9% 1000ML 1,000 ML IV STA ×2 (13:08→14:06)
[2024-07-07 13:09] LABS: INR 0.79; PROTHROMBIN TIME 11.4 seconds (11.9-14.5)
[2024-07-07 13:10] LABS: PARTIAL THROMBOPLASTIN TIME 24.5 seconds (23.8-35.5)
[2024-07-07 13:17] LABS: CLARITY,URINE CLEAR (CLEAR); COLOR,URINE YELLOW (YELLOW)
[2024-07-07 13:18] LABS: BILIRUBIN,URINE NEGATIVE (NEGATIVE); GLUCOSE, URINE 500 (NEGATIVE); KETONES,URINE NEGATIVE (NEGATIVE); LEUKOCYTE ESTERASE ,URINE NEGATIVE (NEGATIVE); NITRITE,URINE NEGATIVE (NEGATIVE); PH,URINE 6 (5 - 7); PROTEIN,URINE DIPSTICK 1+ (NEGATIVE); URINE UROBILINOGEN 0.2 mg/dL (0.2 - 1)
[2024-07-07 13:19] LABS: ALANINE AMINOTRANSFERASE 12 IU/L (0-55); ALBUMIN/GLOBULIN RATIO 0.8 (0.8-2.0); ALKALINE PHOSPHATASE 166 IU/L (40-150); ANION GAP 12.1 mmol/L (8-16); BILIRUBIN,TOTAL 0.2 mg/dL (0.2-1.2); BLOOD UREA NITROGEN 29 mg/dL (7-26); BUN/CREATININE RATIO 21 (6-25); CALCIUM 8.9 mg/dL (8.4-10.2); CARBON DIOXIDE 22 mmol/L (22-29); CHLORIDE 94 mmol/L (98-107); CREATINE KINASE 24 IU/L (29-168); CREATININE, SERUM 1.35 mg/dL (0.57-1.11); EST GLOMERULAR FILTRATION RATE 47 ML/MIN (>=60); MAGNESIUM 1.7 MG/DL (1.3-2.1); POTASSIUM 4.1 mmol/L (3.5-5.1); SODIUM 124 mmol/L (136-145); TOTAL PROTEIN 6.6 g/dL (6.5-8.1)
[2024-07-07 13:22] LABS: GLUCOSE 712 mg/dL (74-118)
[2024-07-07 13:23] LABS: BACTERIA,URINE FEW /HPF; EPITHELIAL CELLS,URINE MANY /LPF; WBC,URINE (MAN) 0-5 /HPF (0-5)
[2024-07-07 13:24] LABS: INFLUENZAE A&B ANTIGEN (RAPID) NEGATIVE (NEGATIVE); RESPIRATORY SYNC. VIRUS NEGATIVE (NEGATIVE)
[2024-07-07 13:26] LABS: TROPONIN I < 0.001 ng/mL (0-0.300)
[2024-07-07] MEDS: INSULIN REGULAR, HUMAN 100 UNIT/1 ML IV ONE (14:07)
[2024-07-07] MEDS ORDERED: DEXTROSE 50% SYRINGE 50 ML IV PRN (14:30)
[2024-07-07] MEDS ORDERED: ONDANSETRON HCL INJ 2MG/ML 2ML 2 MG/ML VIAL IV PRN (14:45)
[2024-07-07] MEDS: INSULIN GLARGINE 100 UNITS/ML VIAL SQ ONE (15:23)
[2024-07-07] MEDS: SODIUM CHLORIDE 0.9% 1000ML 1,000 ML IV SCH (15:23)
[2024-07-07] MEDS: INSULIN LISPRO 100 UNIT/1 ML 3ML VIAL SQ SCH (16:35)
[2024-07-07] MEDS: ACETAMINOPHEN 325 MG TAB PO PRN (17:18)
[2024-07-07 17:46] VITALS: TEMP 98.4
[2024-07-07 19:12] VITALS: PULSE 71; RESP 17
[2024-07-07 19:59] LABS: CREATINE KINASE 27 IU/L (29-168)
[2024-07-07 20:00] VITALS: BP 144/67; PULSE 84; RESP 18; TEMP 98; O2SAT 98
[2024-07-07 20:07] LABS: TROPONIN I < 0.001 ng/mL (0-0.300)
[2024-07-07 21:14] VITALS: BP 144/67; PULSE 84; RESP 18; TEMP 98; O2SAT 97
[2024-07-08 00:44] VITALS: BP 150/78; PULSE 79; RESP 18; TEMP 98.9; O2SAT 98
[2024-07-08 01:37] LABS: TROPONIN I 0.001 ng/mL (0-0.300)
[2024-07-08 04:00] VITALS: BP 151/72; PULSE 83; RESP 18; TEMP 98.5; O2SAT 98
[2024-07-08 06:08] LABS: BASOPHILS # (AUTO) 0.1 (0.0-0.1); BASOPHILS % 0.5 % (0.0-1.0); EOSINOPHILS # (AUTO) 0.1 (0.0-0.4); EOSINOPHILS % 0.9 % (0.0-6.0); HEMATOCRIT 32.7 % (34.2-44.1); HEMOGLOBIN 10.4 g/dL (12.0-16.0); LYMPHOCYTES # (AUTO) 1.3 (1.0-3.2); LYMPHOCYTES % 10.1 % (18.0-39.1); MEAN CORPUSCULAR HEMOGLOBIN 29.8 pg (28-32); MEAN CORPUSCULAR HGB CONC 31.8 g/dL (31-35); MEAN CORPUSCULAR VOLUME 93.7 fL (81-99); MONOCYTES # (AUTO) 0.6 (0.2-0.8); MONOCYTES % 4.9 % (4.4-11.3); NEUTROPHILS # (AUTO) 10.5 (2.1-6.9); NEUTROPHILS % 82.9 % (38.7-80.0); PLATELET COUNT 349 x10e3/uL (140-360); RED BLOOD COUNT 3.49 x10e6/uL (3.6-5.1); WHITE BLOOD COUNT 12.64 x10e3/uL (4.8-10.8)
[2024-07-08 06:46] LABS: ALANINE AMINOTRANSFERASE 11 IU/L (0-55); ALBUMIN 2.9 g/dL (3.5-5.0); ALBUMIN/GLOBULIN RATIO 0.8 (0.8-2.0); ALKALINE PHOSPHATASE 136 IU/L (40-150); ANION GAP 12.5 mmol/L (8-16); BILIRUBIN,TOTAL 0.2 mg/dL (0.2-1.2); BLOOD UREA NITROGEN 17 mg/dL (7-26); BUN/CREATININE RATIO 18 (6-25); CALCIUM 9.1 mg/dL (8.4-10.2); CARBON DIOXIDE 21 mmol/L (22-29); CHLORIDE 101 mmol/L (98-107); CHOL/HDL RATIO 9.3 (3.0-3.6); CHOLESTEROL 297 MD/DL (0-199); CREATININE, SERUM 0.92 mg/dL (0.57-1.11); EST GLOMERULAR FILTRATION RATE 74 ML/MIN (>=60); GLUCOSE 271 mg/dL (74-118); HDL CHOLESTEROL 32 MG/DL (40-60); POTASSIUM 3.5 mmol/L (3.5-5.1); SODIUM 131 mmol/L (136-145); TOTAL PROTEIN 6.5 g/dL (6.5-8.1); TRIGLYCERIDES 466 MG/DL (0-149)
[2024-07-08 06:52] LABS: TROPONIN I 0.004 ng/mL (0-0.300)
[2024-07-08 09:03] VITALS: BP 166/72; PULSE 80; RESP 17; TEMP 98.6; O2SAT 95
[2024-07-08 10:16] VITALS: BP 162/90; PULSE 81; RESP 17; TEMP 98; O2SAT 98
[2024-07-08 14:03] VITALS: BP 150/126; PULSE 72; RESP 21; TEMP 98; O2SAT 100
[2024-07-08] MEDS ORDERED: SODIUM CHLORIDE 0.9% 1000ML 1,000 ML IV SCH (18:00)
== END 2024-07-08 13:57 | disposition left against medical advice (07) | DRG 637 ==
LOC: ER 12:48 → ERHOLD 14:37 → MED/SURG3 20:28
PROVIDERS: ADMIT Internal Medicine; ATTEND Internal Medicine
DX: E11.65 Type 2 diabetes mellitus with hyperglycemia (principal); U07.1 COVID-19; I10 Essential (primary) hypertension; F41.9 Anxiety disorder, unspecified; E78.5 Hyperlipidemia, unspecified; M54.9 Dorsalgia, unspecified; F31.9 Bipolar disorder, unspecified; J45.909 Unspecified asthma, uncomplicated; M79.7 Fibromyalgia; M06.9 Rheumatoid arthritis, unspecified; Z79.4 Long term (current) use of insulin; T38.3X6A Underdosing of insulin and oral hypoglycemic [antidiabetic] drugs, initial encounter; Z91.148 Patient's other noncompliance with medication regimen for other reason; Z53.29 Procedure and treatment not carried out because of patient's decision for other reasons; Z90.49 Acquired absence of other specified parts of digestive tract; Z88.8 Allergy status to other drugs, medicaments and biological substances; Z87.891 Personal history of nicotine dependence
CPT/HCPCS: 36415; 70450; 71045; 72125; 80053; 80061; 81001; 82550; 82948; 83735; 83880; 84484; 85025; 85610; 85730; 87400; 87420; 93005; 99284; J1815; J2470; J7030; U0002

== ENCOUNTER 2025-06-08 10:39 | Inpatient (IN) | payer MEDICARE, OTHER ==
[~2025-06-08] VITALS: Ht 157.5 cm; Wt 54.9 kg
[2025-06-08] MEDS ORDERED: SODIUM CHLORIDE 0.9% 1000ML 1,000 ML IV SCH (11:45)
[2025-06-08 13:04] LABS: BASOPHILS % 0.6 % (0.0-1.0); EOSINOPHILS % 2.2 % (0.0-6.0); LYMPHOCYTES % 23.2 % (18.0-39.1); MONOCYTES % 5.3 % (4.4-11.3); NEUTROPHILS % 67.9 % (38.7-80.0); RED CELL DISTRIBUTION WIDTH 12.8 % (11.7-14.4)
[2025-06-08 13:06] VITALS: PULSE 98; RESP 18; O2SAT 99
[2025-06-08 13:24] LABS: INR 0.77
[2025-06-08 13:34] LABS: EST GLOMERULAR FILTRATION RATE 77.0 ML/MIN (>=60)
[2025-06-08] MEDS: ACETAMINOPHEN 325 MG TAB PO ONE (14:46)
[2025-06-08] MEDS: Vancomycin IV 1 GM in SODIUM CHLORIDE 0.9% 250ML 250 ML IV ONE (14:47)
[2025-06-08] MEDS: SODIUM CHLORIDE 0.9% 1000ML 1,500 ML IV SCH (14:55)
[2025-06-08] MEDS: Morphine 4mg INJECTION 4 MG/ML INJ IV ONE (15:09)
[2025-06-08] MEDS: INSULIN REGULAR, HUMAN 100 UNIT/1 ML IV ONE (15:12)
[2025-06-08 15:42] VITALS: PULSE 70; RESP 17; TEMP 97.9
[2025-06-08 17:36] VITALS: BP 146/81; PULSE 75; RESP 18; TEMP 98.2; O2SAT 100
[2025-06-08 17:45] VITALS: BP 146/81; PULSE 75; RESP 18; TEMP 98.2; O2SAT 100
[2025-06-08 20:00] VITALS: BP 154/87; PULSE 80; RESP 20; TEMP 97.7; O2SAT 98
[2025-06-08 20:06] VITALS: PULSE 80; RESP 18; O2SAT 98
[2025-06-08] MEDS ORDERED: DEXTROSE 50% SYRINGE 50 ML IV PRN (21:15)
[2025-06-08] MEDS: INSULIN GLARGINE 100 UNITS/ML VIAL SQ ONE (21:33)
[2025-06-08] MEDS: INSULIN REGULAR, HUMAN 100 UNIT/1 ML SQ SCH (21:39)
[2025-06-08] MEDS: Morphine 4mg INJECTION 4 MG/ML INJ IV PRN (21:41)
[2025-06-08] MEDS ORDERED: SEVOFLURANE INHAL SOLN 250 ML PEN BTL ONE (22:36)
[2025-06-08] MEDS: HYDROCODONE/APAP 7.5MG-325MG 1 EA TAB PO PRN (23:55)
[2025-06-09] VITALS (9 sets, daily range): BP systolic 115–147; BP diastolic 75–89; PULSE 63–87; RESP 18–20; TEMP 97.8–98.6; O2SAT 97–100
[2025-06-09 07:01] LABS: BASOPHILS % 1.0 % (0.0-1.0); EOSINOPHILS % 3.1 % (0.0-6.0); LYMPHOCYTES % 25.1 % (18.0-39.1); MONOCYTES % 6.6 % (4.4-11.3); NEUTROPHILS % 63.5 % (38.7-80.0); RED CELL DISTRIBUTION WIDTH 12.8 % (11.7-14.4)
[2025-06-09 07:45] LABS: EST GLOMERULAR FILTRATION RATE 95.0 ML/MIN (>=60)
[2025-06-09] MEDS: GABAPENTIN 300 MG CAP PO SCH (14:43)
[2025-06-09] MEDS: METFORMIN HCL 500 MG TAB PO SCH (16:37)
[2025-06-09] MEDS: CLONAZEPAM 1 MG TAB PO SCH (16:37)
[2025-06-09] MEDS ORDERED: TRAZODONE HCL 50 MG TAB PO PRN (20:00)
[2025-06-10] VITALS (8 sets, daily range): BP systolic 109–153; BP diastolic 60–90; PULSE 65–85; RESP 16–18; TEMP 97.6–98.2; O2SAT 95–100
[2025-06-10] MEDS ORDERED: FENTANYL CITRATE/PF 100MCG/2 ML INJ ONE (06:54)
[2025-06-10] MEDS ORDERED: PROPOFOL IV EMULSION 10 MG/ML 20 ML VIAL ONE (06:54)
[2025-06-10] MEDS ORDERED: SUCCINYLCHOLINE CHLORIDE 20 MG/ML 10ML VIAL ONE ×2 (06:54→07:04)
[2025-06-10] MEDS ORDERED: LIDOCAINE HCL 2% LOCAL INJ 5 ML SDV VIAL INJ ONE (06:54)
[2025-06-10] MEDS ORDERED: KETOROLAC TROMETHAMINE 30 MG/ML VIAL ONE (08:55)
[2025-06-10] MEDS ORDERED: METOCLOPRAMIDE HCL 10 MG/2ML VIAL ONE (08:55)
[2025-06-10] MEDS ORDERED: ONDANSETRON HCL INJ 2MG/ML 2ML 2 MG/ML VIAL ONE (08:55)
[2025-06-10] MEDS ORDERED: DEXAMETHASONE SOD PHOS INJ 4 MG/ML SDV ONE (08:55)
[2025-06-10] MEDS ORDERED: EPHEDRINE SULFATE INJ 50 MG/ML VIAL ONE (09:03)
[2025-06-10] MEDS: AMLODIPINE BESYLATE 10 MG TAB PO SCH (10:51)
[2025-06-10] MEDS: MULTIVITAMINS/MINERALS TAB PO SCH (10:51)
[2025-06-10] MEDS: INSULIN REGULAR, HUMAN 100 UNIT/1 ML SQ ONE (13:10)
[2025-06-10] MEDS: SODIUM CHLORIDE 0.9% 500ML 500 ML IV ONE (13:18)
[2025-06-10] MEDS: INSULIN LISPRO 100 UNIT/1 ML 3ML VIAL SQ STA (13:20)
[2025-06-10] MEDS: INSULIN GLARGINE 100 UNITS/ML VIAL SQ ONE (16:13)
[2025-06-10] MEDS: NICOTINE 7 MG PATCH TOP SCH (21:00)
== END 2025-06-10 22:46 | disposition left against medical advice (07) | DRG 513 ==
LOC: ER 11:33 → ERHOLD 12:18 → MED/SURG3 17:02
PROVIDERS: ADMIT Internal Medicine; ATTEND Internal Medicine
PROC: 0HTQXZZ Resection of Finger Nail, External Approach (ICD-10-PCS; 2025-06-10)
PROC: 0LB70ZZ Excision of Right Hand Tendon, Open Approach (ICD-10-PCS; principal; 2025-06-10 08:39)
DX: M65.141 Other infective (teno)synovitis, right hand (principal); E87.1 Hypo-osmolality and hyponatremia; L02.511 Cutaneous abscess of right hand; Z16.24 Resistance to multiple antibiotics; D64.9 Anemia, unspecified; E11.65 Type 2 diabetes mellitus with hyperglycemia; B95.62 Methicillin resistant Staphylococcus aureus infection as the cause of diseases classified elsewhere; D75.839 Thrombocytosis, unspecified; L03.011 Cellulitis of right finger; I10 Essential (primary) hypertension; F41.9 Anxiety disorder, unspecified; F31.9 Bipolar disorder, unspecified; M54.9 Dorsalgia, unspecified; Z79.85 Long-term (current) use of injectable non-insulin antidiabetic drugs; Z79.84 Long term (current) use of oral hypoglycemic drugs; Z79.4 Long term (current) use of insulin; Z90.49 Acquired absence of other specified parts of digestive tract; Z88.8 Allergy status to other drugs, medicaments and biological substances
CPT/HCPCS: 36415; 80048; 80053; 82948; 83605; 85025; 85610; 85730; 87040; 87071; 87075; 87186; 87205; 94799; 99284; J0330; J1100; J1815; J1885; J2003; J2270; J2405; J2543; J2765; J3373; J7030; J7040; J7050